=== PATIENT | female | born 1950 | race African-American/Black ===

== ENCOUNTER → 2016-07-22 | Outpatient (CLI) | payer MEDICARE, OTHER, MEDICAID ==
[~2016-07-22] MED LIST: BACTRIM DS 8001 TA1 PO; CLARITIN10 M1 PO; HYDROCODONE BIT1 T11 PO; LEXAPRO20 MG PO; NEURONTIN300 MG PO; OMEPRAZOLE20 MG PO; PREDNISONE10 MG PO; REMERON30 MG PO; ROBITUSSIN AC 110 ML PO; SIMVASTATIN10 MG PO; TYLENOL500 MG PO; VALIUM10 MG; VISTARIL25 MG PO; Vicodin 5/500 505 MG PO; ZOFRAN4 MG PO; [UNRECOGNIZED DRUG - REMARK]
== END | disposition home or self-care (01) ==
LOC: LAB 09:40
DX: E87.1 Hypo-osmolality and hyponatremia (principal); E55.9 Vitamin D deficiency, unspecified

== ENCOUNTER 2016-09-03 14:00 | Emergency (ER) | payer MEDICARE, OTHER, MEDICAID ==
[~2016-09-03] VITALS: Wt 43.5 kg
[2016-09-03 14:30] LABS: BASO # 0.1 10*3/uL (0.0-0.1); BASO % 0.7 % (0.0-1.0); EOS % 0.3 % (1.0-4.0); HEMATOCRIT 38.5 % (37.0-47.0); HEMOGLOBIN 13.4 g/dl (12.0-16.0); LYMPH % 21.6 % (27.0-41.0); MEAN CELL VOLUME 89.7 fl (81.0-99.0); MEAN CORPUSCULAR HGB 31.2 pg (27.0-31.0); MEAN CORPUSCULAR HGB CONC 34.8 g/dl (33.0-37.0); MEAN PLATELET VOLUME 9.4 fl (9.6-12.3); MONO # 0.6 10*3/uL (0.1-1.0); MONO % 6.1 % (3.0-9.0); NEUT # 6.6 10*3/uL (2.3-7.9); NEUT % 71.1 % (47.0-73.0); PLATELET COUNT AUTOMATED 390 10*3/uL (130-400); RED BLOOD COUNT 4.29 10*6/uL (4.10-5.10); RED CELL DISTRI WIDTH 13.2 % (0-14.5); WHITE BLOOD COUNT 9.3 10*3/uL (4.8-10.8)
[2016-09-03 14:48] LABS: ALBUMIN 3.9 gm/dl (3.1-4.5); BILIRUBIN, TOTAL 0.7 mg/dl (0.2-1.0); MAGNESIUM 1.4 mg/dL (1.5-2.1); POTASSIUM 4.6 mmol/L (3.5-5.1); TOTAL PROTEIN 8.2 gm/dL (6.4-8.2)
[2016-09-03 14:49] VITALS: BP 100/68
[2016-09-03 14:50] LABS: TROPONIN I 0.032 ng/ml (<0.045)
[2016-09-03 14:57] LABS: INTERNATIONAL NORM RATIO 1.2 (2.0-3.5); PROTHROMBIN TIME 12.4 SECONDS (9.0-12.4)
[2016-09-03] MEDS ORDERED: CLOPIDOGREL75 MG PO (15:10)
== END 2016-09-03 14:53 | disposition short-term general hospital (02) ==
LOC: ED 14:00
PROVIDERS: Nurse Practitioner Family
DX: I21.3 ST elevation (STEMI) myocardial infarction of unspecified site (principal); Z90.710 Acquired absence of both cervix and uterus; Z98.890 Other specified postprocedural states; Z79.899 Other long term (current) drug therapy

== ENCOUNTER → 2017-01-08 | Outpatient (CLI) | payer MEDICARE, MEDICAID ==
[~2017-01-08] MED LIST changes: +CLOPIDOGREL75 MG PO
== END | disposition home or self-care (01) ==
LOC: US 12:33
DX: I73.9 Peripheral vascular disease, unspecified (principal)

== ENCOUNTER → 2017-06-06 | Outpatient (CLI) | payer MEDICARE, MEDICAID | END | disposition home or self-care (01) | LOC: RAD 10:54 | DX: J44.9 Chronic obstructive pulmonary disease, unspecified (principal); J90 Pleural effusion, not elsewhere classified; J45.909 Unspecified asthma, uncomplicated; I11.0 Hypertensive heart disease with heart failure; I50.9 Heart failure, unspecified; I21.9 Acute myocardial infarction, unspecified; Z87.891 Personal history of nicotine dependence ==

== ENCOUNTER → 2017-06-13 | Outpatient (CLI) | payer MEDICARE, MEDICAID ==
[2017-06-13 10:18] LABS: BASO # 0.1 10*3/uL (0.0-0.1); BASO % 0.8 % (0.0-1.0); EOS % 0.4 % (1.0-4.0); HEMATOCRIT 33.4 % (37.0-47.0); HEMOGLOBIN 10.9 g/dl (12.0-16.0); LYMPH # 1.6 10*3/uL (1.3-4.4); LYMPH % 15.6 % (27.0-41.0); MEAN CELL VOLUME 88.1 fl (81.0-99.0); MEAN CORPUSCULAR HGB 28.8 pg (27.0-31.0); MEAN CORPUSCULAR HGB CONC 32.6 g/dl (33.0-37.0); MEAN PLATELET VOLUME 9.4 fl (9.6-12.3); MONO # 1.1 10*3/uL (0.1-1.0); NEUT # 7.1 10*3/uL (2.3-7.9); NEUT % 71.9 % (47.0-73.0); PLATELET COUNT AUTOMATED 457 10*3/uL (130-400); RED BLOOD COUNT 3.79 10*6/uL (4.10-5.10); RED CELL DISTRI WIDTH 14.3 % (0-14.5); WHITE BLOOD COUNT 9.9 10*3/uL (4.8-10.8)
[2017-06-13 10:46] LABS: ALBUMIN 2.7 gm/dl (3.1-4.5); CREATININE 1.47 mg/dL (0.55-1.02); POTASSIUM 3.4 mmol/L (3.5-5.1); TOTAL PROTEIN 7.6 gm/dL (6.4-8.2)
== END | disposition home or self-care (01) ==
LOC: LAB 09:54
PROVIDERS: Internal Medicine Hematology & Oncology
DX: C34.90 Malignant neoplasm of unspecified part of unspecified bronchus or lung (principal); J91.0 Malignant pleural effusion

== ENCOUNTER → 2017-06-21 | Day surgery (SDC) | payer MEDICARE, MEDICAID ==
[2017-06-20 09:48] LABS: BASO # 0.1 10*3/uL (0.0-0.1); BASO % 0.8 % (0.0-1.0); EOS % 0.3 % (1.0-4.0); HEMATOCRIT 34.7 % (37.0-47.0); HEMOGLOBIN 11.3 g/dl (12.0-16.0); LYMPH # 1.8 10*3/uL (1.3-4.4); LYMPH % 15.9 % (27.0-41.0); MEAN CELL VOLUME 87.6 fl (81.0-99.0); MEAN CORPUSCULAR HGB 28.5 pg (27.0-31.0); MEAN CORPUSCULAR HGB CONC 32.6 g/dl (33.0-37.0); MEAN PLATELET VOLUME 10.2 fl (9.6-12.3); MONO # 1.2 10*3/uL (0.1-1.0); MONO % 10.3 % (3.0-9.0); NEUT # 8.3 10*3/uL (2.3-7.9); NEUT % 72.2 % (47.0-73.0); PLATELET COUNT AUTOMATED 406 10*3/uL (130-400); RED BLOOD COUNT 3.96 10*6/uL (4.10-5.10); WHITE BLOOD COUNT 11.5 10*3/uL (4.8-10.8)
[2017-06-20 10:01] LABS: CREATININE 1.23 mg/dL (0.55-1.02); POTASSIUM 3.3 mmol/L (3.5-5.1)
[2017-06-20 10:08] LABS: ACT PARTIAL THROMBO TIME 25.4 SECONDS (20.8-31.5); INTERNATIONAL NORM RATIO 1.1 (2.0-3.5)
[2017-06-20 10:38] LABS: BILIRUBIN NEGATIVE (NEGATIVE); BLOOD NEGATIVE (NEGATIVE); CLARITY SL CLOUDY (CLEAR); COLOR YELLOW (YELLOW); GLUCOSE NEGATIVE (NEGATIVE); KETONE NEGATIVE (NEGATIVE); LEUKO ESTERASE NEGATIVE (NEGATIVE); NITRITE NEGATIVE (NEGATIVE); SPECIFIC GRAVITY 1.015 (1.005-1.030); UROBILINOGEN 0.2 E.U./dl (0.2-1.0)
[2017-06-20 10:50] LABS: BACTERIA 2+; EPITHELIAL CELLS 20-30; MUCOUS 1+
[~2017-06-21] VITALS: Ht 170.1 cm; Wt 40.4 kg
[~2017-06-21] MED LIST changes: +ALDACTONE25 MG PO; +AMIODARONE HCL200 MG PO; +BREO ELLIPTA 11 EACH INH; +CARVEDILOL3.125 MG PO; +FUROSEMIDE40 MG PO; +LISINOPRIL5 MG PO; +LORAZEPAM1 MG PO; +MORPHINE SULFAT15 M7 PO; +NITROGLYCERIN0.4 MG SL; +ONDANSETRON HYDR4 MG PO; +POTASSIUM CHLO20 ME4 PO; +PROVENTIL HFA6.7 GM INH; +Percocet 325 MG1 TAB PO; +ZOLPIDEM TART5 MG PO
--- NOTE | ~2017-06-21 | PROC NOTE ---
[place], [place] PROCEDURE NOTE NAME: VERONICA KHALIL [facility] #: [id number] UNIT #: [id number] ROOM: DOCTOR: TRAE DING MD BIRTHDATE: [birth year] DOS: 06/21/2017 PREOPERATIVE DIAGNOSIS: Left lung cancer. POSTOPERATIVE DIAGNOSIS: Left lung cancer. PROCEDURE: Right internal jugular MediPort placement. SURGEON: Trae Ding MD PAPER BAG MACHINE OPERATOR: NITESH. ANESTHESIA: MAC with local. INDICATIONS: This is a 66-year-old lady who needs a MediPort placed for chemotherapy for left lung cancer. It was decided to proceed with a right internal jugular possible right subclavian approach. The procedure and its complications were explained to the patient in detail preoperatively. Complications that were discussed included but were not limited to, bleeding, hemothorax, pneumothorax and infection. She agreed to proceed. DESCRIPTION OF PROCEDURE: After identifying the patient, the patient was brought to the operating suite and laid in the supine position. After IV sedation was administered, the parts were painted and draped in the usual sterile fashion. Timeout procedure was called. With the help of the ultrasound, the right-sided internal jugular vein was accessed and a guidewire was placed, which was confirmed to be in good position on fluoroscopy. Thereafter, a pocket was created on the anterior chest wall, 2 cm below the right clavicle after injecting local anesthesia (1% plain lidocaine). After a pocket was created, hemostasis was confirmed with the help of electrocautery. Thereafter, the catheter was mounted on an introducer and introduced via this incision into the neck where the internal jugular vein was accessed. Over the wire, a sheath and dilator was passed. The dilator was removed and the catheter was then introduced into the sheath and placed into the superior vena cava under direct vision and confirmed on fluoroscopy. Thereafter, the catheter was cut to size and the port was fixed to the end of the catheter. Heparin was injected and blood was withdrawn through this port and it was found to have good flow and good blood draw. At this point, the catheter was fixed to the underlying fascia with the help of 3-0 Prolene in an interrupted fashion. The subcutaneous tissue was approximated with the help of 3-0 Vicryl in a running fashion and the edges of the skin were approximated with the help of 4-0 Vicryl in a subcuticular running fashion. The access site in the neck also was approximated with the help of 4-0 Vicryl in a single stitch. Dressing was placed. The port was accessed again and was found to have good draw and good flow to heparin. The patient was then taken to the recovery room in stable fashion where a chest x-ray was ordered. There were no complications. Dr. Trae Ding, the attending surgeon, was present throughout the operating case. [place], [place] PROCEDURE NOTE NAME: KHALILVERONICA UNIT #: [id number] ROOM: DOCTOR: TRAE DING MD BIRTHDATE: [birth year] Trae Ding MD CM:PROCNOTE:PROCEDURE NOTE [id number] TRAE DING MD
[2017-06-21 06:58] VITALS: BP 131/69
[2017-06-21 08:18] VITALS: BP 104/60
[2017-06-21 08:31] VITALS: BP 102/61
[2017-06-21 08:47] VITALS: BP 107/60
== END | disposition home or self-care (01) ==
LOC: SDC 06-18 09:52
PROVIDERS: Surgery
DX: C34.92 Malignant neoplasm of unspecified part of left bronchus or lung (principal); I50.9 Heart failure, unspecified; Z79.899 Other long term (current) drug therapy; Z95.0 Presence of cardiac pacemaker; Z95.5 Presence of coronary angioplasty implant and graft; J44.9 Chronic obstructive pulmonary disease, unspecified; Z87.891 Personal history of nicotine dependence; Z90.710 Acquired absence of both cervix and uterus; Z98.890 Other specified postprocedural states; I73.9 Peripheral vascular disease, unspecified; I25.10 Atherosclerotic heart disease of native coronary artery without angina pectoris; E78.5 Hyperlipidemia, unspecified; K21.9 Gastro-esophageal reflux disease without esophagitis

== ENCOUNTER 2017-06-29 14:44 | Inpatient (IN) | payer MEDICARE, MEDICAID ==
[~2017-06-29] VITALS: Ht 167.6 cm; Wt 44.6 kg
[2017-06-29] VITALS (9 sets, daily range): BP systolic 122–146; BP diastolic 66–78
--- NOTE | ~2017-06-29 | PR ---
[place], [place] PROGRESS NOTE NAME: VERONICA KHALIL [facility] #: [id number] UNIT #: [id number] ROOM: 406 DOCTOR: LARS BLANCO,NIKOLE Lopez BIRTHDATE: [birth year] DOS: 07/03/2017 ADDENDUM See last dictation of my discharge summary from 07/03/2017 and this would be an addendum to the discharge summary. The patient with advanced lung cancer with metastasis to the bones, reevaluated by Dr. Long, had received one dose of chemotherapy and decided not to get any more doses. The patient is going to [facility] for now and Community palliative care is being consulted. Vital signs are stable. The patient is very weak and disabled from advanced metastatic lung cancer and the pain is being controlled with morphine and I am increasing the dose of morphine and she will be kept on Ativan to keep her comfortable. I will consult palliative care to discuss hospice care with the patient and family. Compensated systolic type congestive heart failure with 25% left ventricular ejection fraction. Coronary artery disease of the [place] vessels without chest pains. Moderate protein-calorie malnutrition and poor prognosis. NIKOLE SOUSA MD CM:PNTRANS 33 [phone] NIKOLE SOUSA MD 07/03/17 0910 interface
--- NOTE | ~2017-06-29 | PR ---
[place], [place] PROGRESS NOTE NAME: VERONICA KHALIL UNIT #: [id number] ROOM: 406 DOCTOR: NIKOLE SOUSA MD BIRTHDATE: [birth year] DOS: NO DICTATION. NIKOLE SOUSA MD CM:PNTRANS [phone] NIKOLE SOUSA MD 07/03/17 235 interface
--- NOTE | ~2017-06-29 | PR ---
[place], [place] PROGRESS NOTE [facility]: [facility] [id number] UNIT #: [id number] ROOM: 406 DOCTOR: NIKOLE SOUSA MD BIRTHDATE: [birth year] DOS: 07/01/2017 SUBJECTIVE: The patient is still having diarrhea, which is chronic for her, but worse than usual. No new complaints. Generalized weakness. OBJECTIVE: VITAL SIGNS: Blood pressure 116/60, heart rate 72 beats per minute, breathing 16 times per minute, temperature 98 degrees Fahrenheit. HEENT AND NECK: Exam within normal limits. CARDIOVASCULAR SYSTEM: Heart rate is regular in rate and rhythm. S1 and S2 normally audible. LUNGS: Clear to auscultation. ABDOMEN: Soft, nontender. No obvious organomegaly. Bowel sounds are present. EXTREMITIES: Without significant cyanosis or edema. IMPRESSION: 1. The patient still has diarrhea. Nausea and vomiting has improved. The patient is being hydrated with normal saline and I am checking her stool for Clostridium difficile, although she has no leukocytosis. 2. Moderate to severe protein-calorie malnutrition with metastatic lung cancer with metastasis to the bones. The patient was having severe back pains and was started on MS Contin and also in addition, she is getting Tylenol and she appears to be more comfortable. 3. Coronary artery disease of the [place] vessels without chest pains. 4. Systolic type congestive heart failure with 25% left ventricular ejection fraction, compensated. 5. Left lower lung pleural effusion which is loculated followed by Dr. Long. 6. The patient is status post chemotherapy for her malignancy 1 week back being followed by Dr. Sofia. NIKOLE SOUSA MD CM:PNTRANS [id number] NIKOLE SOUSA MD 07/01/172203 interface
--- NOTE | ~2017-06-29 | PR ---
[place], [place] PROGRESS NOTE NAME: VERONICA KHALIL [facility] #: [id number] UNIT #: [id number] ROOM: 406 DOCTOR: RUBY RANGEL MD BIRTHDATE: [birth year] DOS: 07/03/2017 SUBJECTIVE: The patient is doing better. She had a PleurX catheter in place. Did not drain much fluid and it will be taken out because that is causing pain. REVIEW OF SYSTEMS HEENT: No trouble swallowing. No double vision. No loss of vision. No pain. ENT AND RESPIRATORY: No wheeze. No change in voice. No cough. No shortness of breath. No coughing up blood. No epistaxis. CARDIOLOGIC: No chest pain. No dizziness. No irregular heartbeat. No leg edema. No palpitations. No shortness of breath. HEMATOLOGIC AND LYMPH: No past transfusion. No fatigue. No loss of appetite. No easy bruising. GASTROENEROLOGIC: No change in bowel habits. No vomiting blood. No abdominal cramping. No nausea. No vomiting. No diarrhea. No constipation. No blood in stool. FEMALE REPRODUCTIVE: No dyspareunia. No pelvic pain. MUSCULOSKELETAL: No back pain. No muscle pain or weakness. No tingling/numbness. UROLOGIC: No pain with urination. No difficulty urinating. No frequent urination. NEUROLOGIC: No burning pain in feet. No trouble with coordination. No loss of consciousness. No headache. No tingling/numbness. No memory loss. PHYSICAL EXAMINATION: GENERAL: She is a pleasant woman in no apparent distress. VITAL SIGNS: Stable. She is afebrile. HEENT: Normocephalic, atraumatic NECK AND THYROID: Supple. No JVD, thyromegaly, or lymphadenopathy. HEART: Normal S1, S2. Regular rate and rhythm. LUNGS: Clear to auscultation and percussion. ABDOMEN: Soft. Nontender, nondistended. Bowel sounds present. EXTREMITIES: Normal ROM. No clubbing. No edema. LABORATORY DATA: White count of 3.8, hemoglobin 7.7, hematocrit 23.9, platelet count 140,000. ASSESSMENT: 1. Metastatic lung cancer status post first cycle of chemotherapy. 2. Nausea, which is improved. 3. Anemia of neoplastic disorder. PLAN: We will be getting a CBC today. PleurX catheter will be removed. She will be going to a alf for now. We will reevaluate her in a few weeks depending on further intervention. Discussed with the patient. Transfusion will get now. [place], [place] PROGRESS NOTE NAME: VERONICA KHALIL UNIT #: [id number] ROOM: [facility] DOCTOR: RUBY RANGEL MD BIRTHDATE: [birth year] RUBY RANGEL MD CM:PNTRANS [id number] RUBY RANGEL MD 07/03/17 0843 interface
--- NOTE | ~2017-06-29 | CON ---
[place], [place] REPORT OF CONSULTATION NAME: VERONICA KHALIL [facility] #: [id number] UNIT #: [id number] ROOM: 406 DOCTOR: ROMAN JHAVERI MD BIRTHDATE: [birth year] DOS: 06/30/2017 CONSULTATION REQUESTED BY: Dr. Bess. REASON FOR CONSULTATION: Assessment of pleural fluid. HISTORY OF PRESENT ILLNESS: This is a 66-year-old -[place] female who was very well known to me from the previous assessment in the office and other hospital. The patient has been admitted in [facility] in 03/2017 or 04/2017. She has been noted with progressive increased pleural fluid that was noted on the left side. Thoracentesis was done with large volume pleural fluid was removed, diagnosis of adenocarcinoma was established. Later on, the patient upon discharge. In April, she underwent PleurX catheter insertion, which was done by the surgeon. The pleural catheter had been used for intermittent drainage of the pleural fluid at left pleural space. The patient stated that has not been much fluid being removed at this time. She was complaining of pain in the left side of the chest. The pain has been described to be intermittently. Denies symptoms of hemoptysis. Denies symptoms of coughing or any sputum expectoration. REVIEW OF SYSTEMS: CONSTITUTIONAL: Fatigue and tiredness noted, decreased appetite, gradual weight loss. EYES: Denies any burning, redness, or tenderness. EARS, NOSE, AND THROAT: Denies sore throat, hoarseness, otalgia, postnasal drainage. GASTROINTESTINAL: No dysphagia, nausea, vomiting, diarrhea, abdominal pain, hematemesis, melena, or hematochezia. SKIN: Denies any lesions or rashes. GENITOURINARY SYMPTOMS: No dysuria, suprapubic pain, hematuria, urinary hesitancy for this patient or incontinence. CENTRAL NERVOUS SYSTEM: The patient noted overall general weakness and fatigue. No dizziness, headache, diplopia, syncopal episode, tingling sensation of the extremities. MUSCULOSKELETAL: Denies acute joint pain. Remaining systems were reviewed. They were noted all negative. PAST MEDICAL HISTORY: Noted with 1. Metastatic cancer. The patient had a carcinoma with malignant pleural fluid was noted, currently been assessed and treated with chemotherapy by Dr. Sofia. 2. History of chronic systolic congestive heart failure with ejection fraction about 25%. 3. Past history of alcoholism. 4. Encephalopathy. 5. Chronic obstructive pulmonary disease. 6. Coronary artery disease. 7. History of cancer of the cervix. 8. Peripheral vascular disease. [place], [place] REPORT OF CONSULTATION NAME: VERONICA KHALIL UNIT #: [id number] ROOM: 406 DOCTOR: VIRAJ FENG MD,ROMAN BIRTHDATE: [birth year] PAST SURGICAL HISTORY: 1. Colostomy for this patient followed by reversal in 2005. 2. Femoral popliteal bypass grafting 04/[address] Perdomo. 3. Total abdominal hysterectomy. 4. Pleural catheter insertion in the left pleural space, malignant for which long-term drainage. 5. Left-sided thoracentesis. 6. PowerPort placement in the chest on 06/21/2017. SOCIAL HISTORY: The patient stated , lives at home. Denies any history of alcohol use at the present time, used to drink alcohol. Tobacco use noted previously. Half a pack of cigarettes per day for the patient that was discontinued in 04/2017. FAMILY HISTORY: Hypertension and other coronary artery disease. MEDICATIONS: The patient currently administered noted use of Aldactone, potassium chloride, lisinopril, Plavix, amiodarone, Reglan, omeprazole, Lasix, simvastatin, gabapentin, Coreg, nitroglycerin p.r.n. and other p.r.n. medications administration including morphine sulphate. ALLERGIES: The drug allergy history noted as no known drug allergies. PHYSICAL EXAMINATION: GENERAL: A 66-year-old female patient, -[place], currently lying in the bed, the patient appeared to be chronically sick. Height of the patient recorded on current admission by the nursing staff with height of 5 feet 6 inches, weight of 86 pounds, BMI only 13.8. VITAL SIGNS: Shows normal temperature, respiratory 18-19, heart rate of 69-89. The blood pressure 140/69-144/71, pulse oxygen saturation on 2 liters nasal cannula 95% saturation. HEENT: Head was atraumatic. Eyes nonicterus. NECK: Supple. CARDIOVASCULAR: S1, S2 is audible. LUNGS: The patient was noted without any crackles, rhonchi or wheezing on the right side. Diminished breath sounds noted in the left mid and lower portion of the chest. There were no crackles or wheezing on that side. ABDOMEN: Soft, flat, nontender. EXTREMITIES: Loss of muscle mass without any edema, clubbing, cyanosis. CENTRAL NERVOUS SYSTEM: Cranial nerves 2-12 intact. MUSCULOSKELETAL: Without any acute deformities. LABORATORY DATA: The lactic acid on admission yesterday was 1.2. CBC yesterday on admission, WBC count 12.4, hemoglobin 10.5, hematocrit 32.1, platelet count of 228,000. CMP of the patient 06/29/2017, BUN 27, creatinine 1.26, glucose 100, sodium 127, chloride of 90. AST of 69. The CBC, hemoglobin 8.3, hematocrit 25.7, platelet count were normal. WBC count normal. BMP this morning, normal BUN and creatinine. The chest x-ray shows loculated pleural fluid with volume loss for this patient was noted. AICD noted in place and the [place], [place] REPORT OF CONSULTATION NAME: VERONICA KHALIL UNIT #: [id number] ROOM: [facility] DOCTOR: ROMAN JHAVERI MD BIRTHDATE: [birth year] MediPort also noted in place for the patient as well. The right lung shows changes of COPD and hyperinflation. IMPRESSION: 1. The patient has been currently complaining of pain in the side of the chest most likely related to the current malignant process involving the pleura as adenocarcinoma of the lung. 2. Progressive weight loss, cachexia, because of the advanced malignancy as well. 3. The patient with COPD history without any findings of acute exacerbation. 4. History of severe chronic systolic congestive heart failure as well. PLAN OF MANAGEMENT: For more adequate assessment patient at this time, CT scan chest will be needed to assess the current pleural fluid. Treat the patient for the pain management adequately. Continuation of other supportive therapy, plan and management. Addition nutrition support for the patient given for the patient as tolerated. Other supportive plan of management and care plan. Supportive treatment and other therapies. ROMAN CALI MD CM:CONSTR:REPORT OF CONSULTATION 1157 07/09/17 0849 interface
--- NOTE | ~2017-06-29 | CON ---
[place], [place] REPORT OF CONSULTATION NAME: VERONICA KHALIL [facility] #: [id number] UNIT #: [id number] ROOM: 406 DOCTOR: RUBY RANGEL MD BIRTHDATE: [birth year] DOS: 07/02/2017 HISTORY OF PRESENT ILLNESS: The patient is a pleasant 66-year-old woman with a history of metastatic lung cancer with quarter chemotherapy last week, presented with nausea, vomiting and some diarrhea. She started after chemotherapy and subsequently admitted for further evaluation and management. PAST MEDICAL HISTORY: Significant for history of recently diagnosed with metastatic lung cancer, history of coronary artery disease and myocardial infarction, history of systolic congestive heart failure at 25% ejection fraction, history of hepatic encephalopathy, history of alcoholism, and history of pancreatitis. PAST SURGICAL HISTORY: Status post reversal of colostomy ____, history of fem-pop bypass, and history of cervical cancer with hysterectomy. MEDICATIONS: Spironolactone, potassium, omeprazole, lisinopril, furosemide, Plavix, ____ simvastatin, Coreg, ondansetron, Ambien, morphine, and lorazepam. ALLERGIES: No allergies. REVIEW OF SYSTEMS: CONSTITUTIONAL: No chills. No fatigue. No fever. No loss of appetite. No night sweats. No weakness. No weight loss. HEENT: No trouble swallowing. No loss of smell. No loss of hearing. No double vision. No pain. No discharge. ENT AND RESPIRATORY: No wheeze. No sore throat. No change in voice. No hearing loss. No nose bleed. No cough. No trouble breathing through nose. No shortness of breath. No coughing up blood. No epistaxis. CARDIOVASCULAR: No chest pain. No dizziness. No irregular heartbeat. No leg edema. No pain in legs while walking. No palpitations. No shortness of breath. DERMATOLOGIC: No acne. No hives. No laceration. No mole. No rash. ENDOCRINE: No cold intolerance. No diabetes. No fatigue. No hot flashes. No polydipsia. No polyuria. No urinating frequently. No weight loss. HEMATOLOGIC AND LYMPH: No fatigue. No easy bruising. GASTROENTEROLOGIC: No change in bowel habits. No indigestion. No frequent bloating. No vomiting blood. No abdominal cramping. No nausea. No heartburn. No vomiting. No abdominal pain. No dysphagia. No diarrhea. No constipation. No blood in stool. FEMALE REPRODUCTIVE: No vaginal itching. No difficulty urinating. No heavy periods. No dyspareunia. No sexually active. No dysmenorrhea. No pelvic pain. No breast pain. No nipple discharge. No abnormal vaginal discharge. No hot flashes. MUSCULOSKELETAL: No back pain. No muscle pain or weakness. No neck pain. No tingling/numbness. No swelling/bruising. No osteoporosis treatment. OPHTHALMOLOGIC: No double vision. No diminished vision. No loss of vision. UROLOGIC: No dysuria. No frequent nighttime urination. No irregular periods. No pain with urination. No difficulty urinating. No blood in urine. No frequent urination. No urinary incontinence. [place], [place] REPORT OF CONSULTATION NAME: VERONICA KHALIL UNIT #: [id number] ROOM: [facility] DOCTOR: RUBY RANGEL MD BIRTHDATE: [birth year] NEUROLOGIC: No loss of sensation in specific body area. No vertigo. No burning pain in feet. No trouble with balance. No trouble with coordination. No loss of consciousness. No loss of feeling/power. No confusion. No headache. No tingling/numbness. PSYCHOLOGIC: No tinnitus. No headaches. No shortness of breath. No weight decrease. No nausea. No vomiting. No abdominal discomfort. No constipation. No diarrhea. No depression. No anxiety. PHYSICAL EXAMINATION: GENERAL: Pleasant woman in no apparent distress, feeling better, oriented x 3. VITAL SIGNS: Stable. She is afebrile. HEENT: Oral mucosa appears intact. The external ears are normal in appearance. Nares are patent without lesions, exudates, erythema, or inflammation. Tongue is symmetrical. Uvula is midline. NECK AND THYROID: Neck supple without palpable masses. Trachea is midline. No thyromegaly. No carotid bruit or JVD. BREASTS: Normal. Nipples unremarkable. No drainage. No lumps felt on either side. HEART: Normal S1, S2, without significant murmur, rub, or gallop. LUNGS: Decreased breath sounds bilaterally. ABDOMEN: No costovertebral angle tenderness. Soft. No organomegaly or masses. Nontender. No hernias present. Liver and spleen are not palpable. LYMPHATIC: No adenopathy noted in the cervical, supraclavicular, axillary, or inguinal regions. NEUROLOGIC: Nonfocal. Oriented to person, place, and time. MENTAL STATUS: Appropriate for mood and affect. PERIPHERAL PULSES: No varicosities. Femoral and pedal pulses are palpable. EXTREMITIES: Without cyanosis, clubbing, or edema. No gross anomalies. LABORATORY DATA: White count of 3.8, hemoglobin 7.7, hematocrit 23.9, and platelet count 240,000. Chemistries: Glucose of 77, BUN 9, EGFR more than 60, sodium 133, potassium 3.9, chloride 101, bicarbonate 23, and calcium 7.8. ASSESSMENT: 1. Metastatic lung cancer. 2. Anemia of neoplastic disorder. 3. Possible bronchitis. 4. Nausea. The patient was started on antibiotics. She was also on broad spectrum antibiotics. We will keep a close watch at this time. Overall, she is stable. Continue supportive care for now. Overall, prognosis is poor. I had detailed discussion with the patient about it, seemed to understand it. Ample time was given to the patient to ask me questions. [place], [place] REPORT OF CONSULTATION NAME: VERONICA KHALIL UNIT #: [id number] ROOM: 406 DOCTOR: RUBY RANGEL MD BIRTHDATE: [birth year] RUBY RANGEL MD CM:CONSTR:REPORT OF CONSULTATION 0 07/02/17 1749 interface
--- NOTE | ~2017-06-29 | PR ---
[place], [place] PROGRESS NOTE NAME: VEORNICA KHALIL UNIT #: [id number] ROOM: 406 DOCTOR: ROMAN JHAVERI MD BIRTHDATE: [birth year] DOS: 07/03/2017 SUBJECTIVE: She has been noted stable at this time, still complaining of pain in the chest. The patient's pain intensity and frequency has been decreased. Current pain medication combination. Denies symptoms of hemoptysis. She was seen by Dr. Patel who was consulted yesterday removal of the pleural catheter. She will be undergoing the surgical removal of the PleurX drain catheter this morning. OBJECTIVE: VITAL SIGNS: Normal temperature, respiratory rate 20, heart rate 93, blood pressure 154/89, and pulse ox saturation on room air 97% saturation. HEENT: No new change. NECK: Supple. CARDIOVASCULAR: S1, S2 is audible. LUNGS: The patient was noted without any wheezing or crackles. Decreased breath sounds on the left lower lung. ABDOMEN: Soft and nontender. EXTREMITIES: Without any acute edema. LABORATORY DATA: CBC today, WBC count 3.8, hemoglobin 7.8, hematocrit 24.8, and platelet count was normal. Culture of the sputum for the patient was noted with moderate growth of yeast. Preliminary final culture results were pending. IMPRESSION: 1. Malignant pleural fluid on the left side with chest pain secondary to malignancy, adenocarcinoma with other mass lesion noted in the left lung. 2. The patient with leukopenia and anemia secondary to malignancy, possible chemotherapy effects. PLAN OF MANAGEMENT: No changes in the plan of therapy at this time. Continue the patient's current plan of management. Proceed with the removal of the PleurX catheter drain. After that the patient could be considered for home discharge if necessary with pain medication. Consider hospice care and assessment as well since the patient decided not to have further chemotherapy given. [place], [place] PROGRESS NOTE NAME: VERONICA KHALIL UNIT #: [id number] ROOM: 406 DOCTOR: ROMAN JHAVERI MD BIRTHDATE: [birth year] ROMAN CALI MD CM:PNTRANS [id number] ROMAN FENG MD 07/09/17 0850 interface
--- NOTE | ~2017-06-29 | PR ---
[place], [place] PROGRESS NOTE NAME: VERONICA KHALIL UNIT #: [id number] ROOM: 406 DOCTOR: NIKOLE SOUSA MD BIRTHDATE: [birth year] DOS: 06/30/2017 SUBJECTIVE: The patient is complaining of significant back pain. It is not controlled with morphine and she is requesting Tylenol, which does work for her in addition to morphine. OBJECTIVE: VITAL SIGNS: Blood pressure 114/61, heart rate 79 beats per minute, breathing 16 times per minute, temperature of 98 degrees Fahrenheit. GENERAL APPEARANCE: The patient is alert and oriented x 3, in no visible distress, except for generalized weakness and cachexia. HEENT AND NECK: Exam within normal limits. CARDIOVASCULAR SYSTEM: Heart rate is regular in rate and rhythm. S1 and S2 normally audible. LUNGS: Clear to auscultation. ABDOMEN: Soft, nontender. No obvious organomegaly. Bowel sounds are present. EXTREMITIES: Without significant cyanosis or edema. IMPRESSION AND PLAN: 1. The patient with nausea, vomiting, diarrhea and dehydration, improved with hydration with normal saline. We are taking bedsore precautions and fall precautions. The patient to work with physical therapy. 2. Moderate to severe protein-calorie malnutrition with metastatic lung cancer with metastasis to the bone and significant pain. The patient was started on MS Contin and I will add on Tylenol 3 times a day and continue to follow her. I will continue to monitor her pain complaints. 3. Coronary artery disease of the [place] vessels and history of myocardial infarction, presently without chest pain. 4. Systolic type congestive heart failure with 25% left ventricular ejection fraction, compensated, chronic. 5. Left lower lung pleural effusion and adjacent atelectasis. The patient to be followed by Dr. Long. 6. Adult failure to thrive, generalized weakness, protein calorie malnutrition and advanced failure to thrive. The patient has a suboptimal prognosis. [place], [place] PROGRESS NOTE NAME: VERONICA KHALIL UNIT #: [id number] ROOM: 406 DOCTOR: NIKOLE SOUSA MD BIRTHDATE: [birth year] NIKOLE SOUSA MD CM:PNTRANS [id number] NIKOLE SOUSA MD 06/30/17 9468 interface
--- NOTE | ~2017-06-29 | WRIGHTHP ---
[place], [place] PATIENT HISTORY AND PHYSICAL EXAM NAME: VERONICA KHALIL [facility] #: [id number] UNIT #: [id number] ROOM: 406 DOCTOR: NIKOLE SOUSA MD BIRTHDATE: [birth year] DOS: 06/29/2017 HISTORY OF PRESENT ILLNESS: 1. The patient is a 66-year-old female with history of metastatic lung cancer with metastasis to the bone. The patient started on chemotherapy on Sunday, which was 5 days ago. 2. Coronary artery disease and myocardial infarction. 3. Systolic type congestive heart failure at 25%, left ventricular ejection fraction. 4. History of alcoholism. 5. Hepatic encephalopathy. 6. History of pancreatitis. 7. The patient with reversal of colostomy at [facility] on 06/13/2005. 8. History of fem-pop bypass. 9. The patient has history of cervical cancer with hysterectomy. The patient presented to [facility] Emergency Department with persistent nausea, vomiting and some diarrhea, which started after her chemotherapy on Sunday. The patient is feeling very weak and tired. After initial treatment in Emergency Department, she was admitted to [facility]. The patient feels somewhat uncomfortable, but no chest pains, although she is chronically short of breath and uses oxygen. No fainting episode. No other GI or urinary symptoms. REVIEW OF SYSTEMS: LUNGS: Chronic shortness of breath and oxygen dependence. GASTROINTESTINAL: Recent nausea, vomiting and diarrhea. CARDIOVASCULAR: No chest pains or palpitations. ALLERGIES: No known drug allergies. HOME MEDICATIONS: Spironolactone, potassium, omeprazole, lisinopril, furosemide, Plavix, amiodarone, simvastatin, Coreg, ondansetron, Ambien, morphine, lorazepam. PHYSICAL EXAMINATION: GENERAL: Very weak and looks somewhat uncomfortable, but in no distress. She is otherwise oriented x 3. VITAL SIGNS: Blood pressure 144/71, heart rate 84 beats per minute, breathing 18 times per minute, temperature 98.3 degrees Fahrenheit. HEENT AND NECK: Extraocular movements are intact. Sclerae are anicteric. Oral mucosa is moist and clean. No obvious facial weakness. Neck is supple without any lymphadenopathy. No thyromegaly. No JVD. No carotid arterial bruits. CHEST: The patient is very weak and cachectic with MediPort placed in right upper chest. Generalized muscle wasting and on lung auscultation she has somewhat decreased breath sounds and slight expiratory wheezing. CARDIOVASCULAR SYSTEM: Heart rate is regular in rate and rhythm. S1 and S2 normally audible. No significant murmur or any other abnormal cardiac sounds. ABDOMEN: Soft, nontender. No obvious organomegaly. Bowel sounds are present. [place], [place] PATIENT HISTORY AND PHYSICAL EXAM [facility]: [id number] UNIT #: [id number] ROOM: [facility] DOCTOR: NIKOLE SOUSA MD BIRTHDATE: [birth year] No obvious herniation. EXTREMITIES: Without significant cyanosis or edema. Warm to touch. CENTRAL NERVOUS SYSTEM: Alert and oriented x 3. Cranial nerves II-XII are intact. Speech is normal. The patient is able to move all extremities. Normal muscle strength. Deep tendon reflexes are equal on both sides. Plantars were downgoing. LABORATORY DATA: Chest x-ray with moderate left pleural effusion and atelectasis. BUN and creatinine 27 and 1.2, sodium 127, albumin 2.7. White cell count of 12,400, hemoglobin 10.5. Normal platelets. IMPRESSION AND PLAN: 1. The patient has nausea, vomiting, diarrhea, and dehydration. After receiving chemotherapy on Sunday, the patient to be started on hydration with normal saline and her serum electrolytes will be monitored. The patient will also be kept on physical therapy and will take bedsore and fall precautions. 2. [id number]-[id number] protein calorie malnutrition related to her multiple medical problems and metastatic lung cancer. 3. Coronary artery disease of the [place] vessels and [place], history presently without chest pain. 4. Chronic systolic type congestive heart failure at 25% left ventricular ejection fraction, presently compensated. 5. The patient with significant left lower lung pleural effusion and adjacent atelectasis. I will consult Dr. Long to evaluate and treat. 6. Adult failure to thrive, generalized weakness, and protein calorie malnutrition. The patient has suboptimal prognosis. NIKOLE SOUSA MD CM:HISPHYS:PATIENT HISTORY AND PHYSICAL EXAMINATION 52 [phone] NIKOLE SOUSA MD 06/29/172128 interface
--- NOTE | ~2017-06-29 | PR ---
[place], [place] PROGRESS NOTE NAME: VERONICA KHALIL [facility] #: [id number] UNIT #: [id number] ROOM: 406 DOCTOR: VIRAJ FENG MD,ROMAN BIRTHDATE: [birth year] DOS: 07/01/2017 PULMONARY FOLLOWUP SUBJECTIVE: The patient was noted comfortable at this time. Chest pain has been noted moderately controlled by current pain management. Denies any symptoms of hemoptysis. Complains of cough, which has been noted with intermittent sputum expectoration. Denies symptoms of abdominal pain. Denies symptoms of nausea, vomiting, diarrhea or any abdominal pain. Denies symptoms of hematuria. General weakness and fatigue was still noted. Denies symptoms of dizziness or headache. OBJECTIVE: VITAL SIGNS: For the patient, which were recorded in the last 24 hours reviewed, shows a normal temperature, respiratory rate 16, heart rate of 72, blood pressure 116/60. HEENT: Shows head was atraumatic. Eyes, nonicterus. NECK: Supple. CARDIOVASCULAR: S1, S2 was audible. LUNGS: Noted without any wheezing or crackles in the right side. Diminished breath sounds noted in the left chest. ABDOMEN: Flat, soft, nontender. EXTREMITIES: Loss of muscle mass. VISIBLE SKIN: No lesions or rashes. MUSCULOSKELETAL: Without any acute deformities. CENTRAL NERVOUS SYSTEM: Without any gross focal neurologic deficit. LABORATORY DATA: CBC today, hemoglobin 7.8, hematocrit 20.9, WBC count normal, platelet count were normal. The BMP that was done this morning shows BUN 15, creatinine was normal. Sodium of 133. CT scan of the chest that I ordered yesterday was personally reviewed. CT scan images shows numerous pulmonary nodule noted with miliary pattern and metastatic malignancy would be considered very likely. Evidence of a loculated pleural fluid noted. The chest tube was noted in the left lower portion of the thorax, at the site of one loculated pleural fluid. The esophagus was also noted with some material on liquid. IMPRESSION: 1. The patient with coughing, which has been noted, advanced lung malignancy with further worsening noted with metastatic cancer, biliary nodules numerous in the lungs bilaterally. Loculated pleural fluid, secondary to malignancy. 2. Suspicion of acute bronchitis. 3. The patient with overall poor performance physically as well secondary to malignancy. PLAN OF MANAGEMENT: The patient will be started on the oral antibiotic. Sputum culture will be added. She decided not to undergo further chemotherapy. The patient should be assessed possibly for hospice care as well. Other supportive therapy and the management plan to be continued. Usual care. Overall prognosis noted to be extremely poor. [place], [place] PROGRESS NOTE NAME: VERONICA KHALIL UNIT #: [id number] ROOM: [facility] DOCTOR: ROMAN JHAVERI MD BIRTHDATE: [birth year] ROMAN CALI MD CM:PNTRANS [id number] ROMAN FENG MD 07/02/17 0425 interface
--- NOTE | ~2017-06-29 | DS ---
[place], [place] DISCHARGE SUMMARY NAME: VERONICA KHALIL [facility] #: [id number] UNIT #: [id number] ROOM: 406 DOCTOR: NIKOLE SOUSA MD BIRTHDATE: [birth year] DOS: 07/03/2017 ANTICIPATED DISCHARGE: Whenever patient can be sent over to [facility] as arranged by case management. DISCHARGE DIAGNOSES: 1. Advanced lung cancer with metastasis, evaluated by Dr. Long. 2. Moderate to severe protein-calorie malnutrition and poor prognosis. 3. Coronary artery disease of the [place] vessels. 4. Systolic type congestive heart failure with 25% left ventricular ejection fraction, compensated. 5. Loculated left lower lung pleural effusion, with chest tube placement, which is going to be removed by Dr. Patel when arranged. 6. The patient is status post chemotherapy [address] Sofia. 7. Coronary artery disease of the [place] vessels and history of myocardial infarction. 8. History of alcoholism. 9. Hepatic encephalopathy. 10. Previous history of pancreatitis. 11. Previous history of reversal of colostomy at [facility] in 2005. 12. Femora-popliteal bypass. 13. History of cervical cancer and hysterectomy. HOSPITAL COURSE: The patient presented to the Emergency Department with persistent nausea, vomiting and some diarrhea. Stool for C. diff have been negative and patient was treated with hydration with normal saline. The patient's diarrhea started after she received chemotherapy a few days earlier. The patient was feeling very weak and tired and she was admitted to [facility] and treated with hydration with normal saline. The patient is feeling somewhat better and she has decided to go to fpc facility at [facility] when arrangements are complete. Moderate to severe protein-calorie malnutrition with poor prognosis, related to her metastatic lung cancer. The patient with metastatic lung carcinoma with metastasis to the bones, status post chemotherapy by Dr. Sofia. The patient is not planning to get any more chemotherapy and is reconsidering her code status, as the patient's prognosis remains very poor. Left lower lung pleural effusion and loculated fluid for which the patient had chest tube in place. Dr. Long reevaluated the patient and recommended chest tube to be removed by Dr. Patel, who has been consulted. Adult failure to thrive, generalized weakness and protein-calorie malnutrition. The patient worked with Dietary and was encouraged to eat. Multiple medical issues including hepatic encephalopathy, previous history of alcoholism, history of fem-pop bypass, cervical cancer and hysterectomy and [place], [place] DISCHARGE SUMMARY NAME: VERONICA KHALIL [facility] #: [id number] UNIT #: [id number] ROOM: [facility] DOCTOR: LARS BLANCO,NIKOLE Lopez BIRTHDATE: [birth year] advanced disability and adult failure to thrive. Coronary artery disease of [place] vessels and [place], without any chest pains. LABORATORY DATA: White cell count of 2800, hemoglobin 7.7 and stable, platelets 140,000. Normal serum electrolytes. Stool for C. diff negative, checked because of diarrhea and started after chemotherapy. CT of the chest showed left-sided chest tube located in the anterior left costophrenic angle, partly loculated small left pleural effusion and COPD with diffuse nodular densities. DISCHARGE MANAGEMENT: Tylenol 1000 mg t.i.d., spironolactone 25 mg a day, potassium chloride 20 mEq daily, lisinopril 5 mg a day, Plavix 75 mg a day, amiodarone 200 mg daily, metoclopramide 10 mg before meals, omeprazole 40 mg a day, furosemide 40 mg b.i.d., simvastatin 10 mg a day, gabapentin 300 mg b.i.d., Coreg 3.125 mg b.i.d., sublingual nitroglycerin 0.4 mg every 5 minutes x 3 p.r.n. for chest pains, regular diet, zolpidem 5 mg at bedtime p.r.n., lorazepam 1 mg daily p.r.n. for anxiety and sleep, MS Contin 15 mg b.i.d. NIKOLE SOUSA MD CM:DISCHARG [id number] NIKOLE SOUSA MD 07/02/17 1821 interface
--- NOTE | ~2017-06-29 | PR ---
[place], [place] PROGRESS NOTE NAME: VERONICA KHALIL [facility] #: [id number] UNIT #: [id number] ROOM: 406 DOCTOR: VIRAJ FENG MD,ROMAN BIRTHDATE: [birth year] DOS: 07/02/2017 SUBJECTIVE: The patient was still complaining of pain in the left chest. Denies any symptoms of abdominal pain. Denies symptoms of hemoptysis. Denies symptoms of nausea or vomiting. OBJECTIVE: VITAL SIGNS: Normal temperature, respiratory rate 18, heart rate of 84, blood pressure 136/70. Pulse oxygen saturation on 2 liters is 94% saturation. HEENT: Examination shows no acute change. NECK: Supple. CARDIOVASCULAR: S1, S2 audible. LUNGS: Noted without any wheeze or crackles at the present time. The breaths are noted decreased in the left lower chest. ABDOMEN: Soft, nontender. EXTREMITIES: Without any acute edema. IMPRESSION: 1. Persistent left-sided chest pain secondary to malignancy with loculated pleural fluid secondary to adenocarcinoma, which has been noted progressive. 2. Leukopenia and anemia secondary to chemotherapy. PLAN OF MANAGEMENT: The patient would like to have the PleurX catheter removed. The consultation has been ordered for the patient with Dr. Patel. I spoke with him about that. PleurX catheter will be removed since it is not serving much at all any way. Continue optimizing pain management. Other therapy to be continued. ROMAN CALI MD CM:PNTRANS [phone] ROMAN FENG MD 07/02/17 2246 interface
[~2017-06-29 14:44] MED LIST changes: -ALDACTONE25 MG PO; -AMIODARONE HCL200 MG PO; -BREO ELLIPTA 11 EACH INH; -CARVEDILOL3.125 MG PO; -FUROSEMIDE40 MG PO; -LISINOPRIL5 MG PO; -LORAZEPAM1 MG PO; -MORPHINE SULFAT15 M7 PO; -NITROGLYCERIN0.4 MG SL; -ONDANSETRON HYDR4 MG PO; -POTASSIUM CHLO20 ME4 PO; -PROVENTIL HFA6.7 GM INH; -Percocet 325 MG1 TAB PO; -ZOLPIDEM TART5 MG PO
[2017-06-29 15:17] LABS: HEMATOCRIT 32.1 % (37.0-47.0); HEMOGLOBIN 10.5 g/dl (12.0-16.0); MEAN CELL VOLUME 86.1 fl (81.0-99.0); MEAN CORPUSCULAR HGB 28.2 pg (27.0-31.0); MEAN CORPUSCULAR HGB CONC 32.7 g/dl (33.0-37.0); PLATELET COUNT AUTOMATED 228 10*3/uL (130-400); RED BLOOD COUNT 3.73 10*6/uL (4.10-5.10); WHITE BLOOD COUNT 12.4 10*3/uL (4.8-10.8)
[2017-06-29 15:32] LABS: ALBUMIN 2.7 gm/dl (3.1-4.5); CREATININE 1.26 mg/dL (0.55-1.02); POTASSIUM 4.2 mmol/L (3.5-5.1)
[2017-06-29 15:39] LABS: TOTAL CELLS COUNTED 100 #CELLS
[2017-06-29 15:40] LABS: PLATELET SUFFICIENCY NORMAL (NORMAL); ROULEAUX SLIGHT
[2017-06-29] MEDS ORDERED: ALDACTONE25 MG PO (15:57)
[2017-06-29] MEDS ORDERED: AMIODARONE HCL200 MG PO (15:57)
[2017-06-29] MEDS ORDERED: ZOLPIDEM TART5 MG PO (15:57)
[2017-06-29] MEDS ORDERED: FUROSEMIDE40 MG PO (15:58)
[2017-06-29] MEDS ORDERED: ONDANSETRON HYDR4 MG PO (15:59)
[2017-06-29] MEDS ORDERED: MORPHINE SULFAT15 M7 PO (15:59)
[2017-06-29] MEDS ORDERED: CARVEDILOL3.125 MG PO (16:00)
[2017-06-29] MEDS ORDERED: Percocet 325 MG1 TAB PO (16:00)
[2017-06-29] MEDS ORDERED: POTASSIUM CHLO20 ME4 PO (16:00)
[2017-06-29] MEDS ORDERED: LORAZEPAM1 MG PO (16:01)
[2017-06-29] MEDS ORDERED: NITROGLYCERIN0.4 MG SL (16:02)
[2017-06-29] MEDS ORDERED: BREO ELLIPTA 11 EACH INH (16:03)
[2017-06-29] MEDS ORDERED: PROVENTIL HFA6.7 GM INH (16:03)
[2017-06-29] MEDS ORDERED: LISINOPRIL5 MG PO (16:05)
[2017-06-30] VITALS: BP 140/69
[2017-06-30 06:15] LABS: BASO % 0.2 % (0.0-1.0); EOS # 0.1 10*3/uL (0.0-0.4); EOS % 1.5 % (1.0-4.0); HEMATOCRIT 25.7 % (37.0-47.0); HEMOGLOBIN 8.3 g/dl (12.0-16.0); LYMPH # 0.8 10*3/uL (1.3-4.4); LYMPH % 8.2 % (27.0-41.0); MEAN CELL VOLUME 88.3 fl (81.0-99.0); MEAN CORPUSCULAR HGB 28.5 pg (27.0-31.0); MEAN CORPUSCULAR HGB CONC 32.3 g/dl (33.0-37.0); MEAN PLATELET VOLUME 10.7 fl (9.6-12.3); MONO # 0.2 10*3/uL (0.1-1.0); MONO % 1.8 % (3.0-9.0); NEUT # 8.3 10*3/uL (2.3-7.9); NEUT % 87.7 % (47.0-73.0); PLATELET COUNT AUTOMATED 179 10*3/uL (130-400); RED BLOOD COUNT 2.91 10*6/uL (4.10-5.10); RED CELL DISTRI WIDTH 14.9 % (0-14.5); WHITE BLOOD COUNT 9.4 10*3/uL (4.8-10.8)
[2017-06-30 06:54] LABS: CHLORIDE 100 mmol/L (98-107); POTASSIUM 3.8 mmol/L (3.5-5.1); SODIUM 133 mmol/L (136-145)
[2017-06-30 06:58] LABS: BUN 18 mg/dl (7-24); CREATININE 0.94 mg/dL (0.55-1.02)
[2017-06-30 08:00] VITALS: BP 149/65
[2017-06-30 08:11] LABS: BILIRUBIN NEGATIVE (NEGATIVE); BLOOD NEGATIVE (NEGATIVE); CLARITY CLEAR (CLEAR); COLOR YELLOW (YELLOW); GLUCOSE NEGATIVE (NEGATIVE); KETONE NEGATIVE (NEGATIVE); LEUKO ESTERASE NEGATIVE (NEGATIVE); NITRITE NEGATIVE (NEGATIVE); UROBILINOGEN 0.2 E.U./dl (0.2-1.0)
[2017-06-30 08:21] LABS: BACTERIA TRACE
[2017-06-30 12:00] VITALS: BP 114/61
[2017-06-30 16:00] VITALS: BP 96/52
[2017-06-30 20:00] VITALS: BP 90/54
[2017-07-01] VITALS: BP 124/58
[2017-07-01 06:17] LABS: HEMATOCRIT 23.9 % (37.0-47.0); HEMOGLOBIN 7.8 g/dl (12.0-16.0); MEAN CELL VOLUME 88.8 fl (81.0-99.0); MEAN CORPUSCULAR HGB CONC 32.6 g/dl (33.0-37.0); MEAN PLATELET VOLUME 10.2 fl (9.6-12.3); PLATELET COUNT AUTOMATED 155 10*3/uL (130-400); RED BLOOD COUNT 2.69 10*6/uL (4.10-5.10); WHITE BLOOD COUNT 5.9 10*3/uL (4.8-10.8)
[2017-07-01 06:54] LABS: BUN 15 mg/dl (7-24); CHLORIDE 99 mmol/L (98-107); CREATININE 0.99 mg/dL (0.55-1.02); POTASSIUM 3.5 mmol/L (3.5-5.1); SODIUM 133 mmol/L (136-145)
[2017-07-01 06:58] LABS: POLYCHROMASIA SLIGHT; TOTAL CELLS COUNTED 100 #CELLS
[2017-07-01 06:59] LABS: PLATELET SUFFICIENCY NORMAL (NORMAL); TARGET CELLS FEW
[2017-07-01 08:00] VITALS: BP 107/58
[2017-07-01 12:00] VITALS: BP 116/60
[2017-07-01 16:00] VITALS: BP 123/59
[2017-07-01 20:00] VITALS: BP 115/54
[2017-07-02 00:48] VITALS: BP 123/70
[2017-07-02 07:03] LABS: BASO % 0.8 % (0.0-1.0); EOS # 0.1 10*3/uL (0.0-0.4); EOS % 1.6 % (1.0-4.0); HEMATOCRIT 23.9 % (37.0-47.0); HEMOGLOBIN 7.7 g/dl (12.0-16.0); LYMPH # 0.8 10*3/uL (1.3-4.4); LYMPH % 20.1 % (27.0-41.0); MEAN CELL VOLUME 89.5 fl (81.0-99.0); MEAN CORPUSCULAR HGB 28.8 pg (27.0-31.0); MEAN CORPUSCULAR HGB CONC 32.2 g/dl (33.0-37.0); MEAN PLATELET VOLUME 10.7 fl (9.6-12.3); MONO # 0.2 10*3/uL (0.1-1.0); MONO % 4.7 % (3.0-9.0); NEUT # 2.7 10*3/uL (2.3-7.9); PLATELET COUNT AUTOMATED 140 10*3/uL (130-400); RED BLOOD COUNT 2.67 10*6/uL (4.10-5.10); WHITE BLOOD COUNT 3.8 10*3/uL (4.8-10.8)
[2017-07-02 07:14] LABS: BUN 9 mg/dl (7-24); CHLORIDE 101 mmol/L (98-107); CREATININE 0.78 mg/dL (0.55-1.02); POTASSIUM 3.9 mmol/L (3.5-5.1); SODIUM 133 mmol/L (136-145)
[2017-07-02 08:00] VITALS: BP 136/70
[2017-07-02 12:00] VITALS: BP 129/89
[2017-07-02] MEDS ORDERED: LORAZEPAM1 MG PO (12:13)
[2017-07-02] MEDS ORDERED: Percocet 325 MG1 TAB PO (12:13)
[2017-07-02 16:00] VITALS: BP 138/64
[2017-07-02 20:00] VITALS: BP 132/69
[2017-07-03] VITALS (8 sets, daily range): BP systolic 109–154; BP diastolic 51–89
[2017-07-03 09:26] LABS: BASO % 0.5 % (0.0-1.0); EOS % 0.8 % (1.0-4.0); HEMATOCRIT 24.8 % (37.0-47.0); HEMOGLOBIN 7.8 g/dl (12.0-16.0); LYMPH # 0.9 10*3/uL (1.3-4.4); LYMPH % 22.9 % (27.0-41.0); MEAN CELL VOLUME 89.5 fl (81.0-99.0); MEAN CORPUSCULAR HGB 28.2 pg (27.0-31.0); MEAN CORPUSCULAR HGB CONC 31.5 g/dl (33.0-37.0); MEAN PLATELET VOLUME 10.5 fl (9.6-12.3); MONO # 0.4 10*3/uL (0.1-1.0); MONO % 9.6 % (3.0-9.0); NEUT # 2.5 10*3/uL (2.3-7.9); NEUT % 64.9 % (47.0-73.0); PLATELET COUNT AUTOMATED 145 10*3/uL (130-400); RED BLOOD COUNT 2.77 10*6/uL (4.10-5.10); RED CELL DISTRI WIDTH 14.8 % (0-14.5); WHITE BLOOD COUNT 3.8 10*3/uL (4.8-10.8)
[2017-07-03] MEDS ORDERED: LORAZEPAM1 MG PO (19:13)
[2017-07-03] MEDS ORDERED: TYLENOL EXTRA500 M2 PO (19:13)
[2017-07-03] MEDS ORDERED: MORPHINE SULFAT15 M7 PO (19:13)
== END 2017-07-03 20:20 | DRG 180 ==
LOC: ED 14:44 → 4E 17:41
PROVIDERS: Emergency Medicine; Internal Medicine; Internal Medicine Hematology & Oncology
PROC: 0W9B30Z Drainage of Left Pleural Cavity with Drainage Device, Percutaneous Approach (ICD-10-PCS; principal; 2017-07-03)
DX: C34.90 Malignant neoplasm of unspecified part of unspecified bronchus or lung (principal); E43 Unspecified severe protein-calorie malnutrition; J91.0 Malignant pleural effusion; D70.1 Agranulocytosis secondary to cancer chemotherapy; C78.2 Secondary malignant neoplasm of pleura; C79.51 Secondary malignant neoplasm of bone; K72.90 Hepatic failure, unspecified without coma; I50.22 Chronic systolic (congestive) heart failure; J98.11 Atelectasis; Z68.1 Body mass index [BMI] 19.9 or less, adult; D63.0 Anemia in neoplastic disease; I25.10 Atherosclerotic heart disease of native coronary artery without angina pectoris; K52.9 Noninfective gastroenteritis and colitis, unspecified; J44.9 Chronic obstructive pulmonary disease, unspecified; E86.0 Dehydration; R62.7 Adult failure to thrive; I73.9 Peripheral vascular disease, unspecified; Z79.899 Other long term (current) drug therapy; Z85.41 Personal history of malignant neoplasm of cervix uteri; Z90.710 Acquired absence of both cervix and uterus; Z93.3 Colostomy status

== ENCOUNTER → 2017-07-17 | Outpatient (CLI) | payer MEDICARE, MEDICAID ==
[2017-07-17] VITALS (11 sets, daily range): BP systolic 97–146; BP diastolic 52–91
[~2017-07-17] MED LIST changes: +ALDACTONE25 MG PO; +AMIODARONE HCL200 MG PO; +BREO ELLIPTA 11 EACH INH; +CARVEDILOL3.125 MG PO; +FUROSEMIDE40 MG PO; +LISINOPRIL5 MG PO; +LORAZEPAM1 MG PO; +MORPHINE SULFAT15 M7 PO; +NITROGLYCERIN0.4 MG SL; +ONDANSETRON HYDR4 MG PO; +POTASSIUM CHLO20 ME4 PO; +PROVENTIL HFA6.7 GM INH; +Percocet 325 MG1 TAB PO; +TYLENOL EXTRA500 M2 PO; +ZOLPIDEM TART5 MG PO
== END | disposition home or self-care (01) ==
LOC: TRNFUSION 12:49
DX: C78.00 Secondary malignant neoplasm of unspecified lung (principal); M62.81 Muscle weakness (generalized); I11.0 Hypertensive heart disease with heart failure; I50.22 Chronic systolic (congestive) heart failure; R26.2 Difficulty in walking, not elsewhere classified; C79.51 Secondary malignant neoplasm of bone; J44.9 Chronic obstructive pulmonary disease, unspecified; F41.9 Anxiety disorder, unspecified; J91.0 Malignant pleural effusion; I25.10 Atherosclerotic heart disease of native coronary artery without angina pectoris; I25.2 Old myocardial infarction; I73.9 Peripheral vascular disease, unspecified; Z92.21 Personal history of antineoplastic chemotherapy; Z95.2 Presence of prosthetic heart valve

== ENCOUNTER 2017-07-19 22:55 | Emergency (ER) | payer MEDICARE, MEDICAID ==
[~2017-07-19] VITALS: Ht 167.6 cm; Wt 40.4 kg
[2017-07-19 23:37] LABS: BASO % 0.2 % (0.0-1.0); EOS % 0.1 % (1.0-4.0); HEMATOCRIT 35.9 % (37.0-47.0); HEMOGLOBIN 11.7 g/dl (12.0-16.0); LYMPH # 1.3 10*3/uL (1.3-4.4); LYMPH % 12.3 % (27.0-41.0); MEAN CELL VOLUME 89.1 fl (81.0-99.0); MEAN CORPUSCULAR HGB CONC 32.6 g/dl (33.0-37.0); MEAN PLATELET VOLUME 9.6 fl (9.6-12.3); MONO # 0.1 10*3/uL (0.1-1.0); MONO % 1.1 % (3.0-9.0); NEUT # 9.1 10*3/uL (2.3-7.9); NEUT % 85.9 % (47.0-73.0); PLATELET COUNT AUTOMATED 248 10*3/uL (130-400); RED BLOOD COUNT 4.03 10*6/uL (4.10-5.10); RED CELL DISTRI WIDTH 15.9 % (0-14.5); WHITE BLOOD COUNT 10.6 10*3/uL (4.8-10.8)
[2017-07-19 23:51] LABS: BILIRUBIN NEGATIVE (NEGATIVE); BLOOD TRACE-INTACT (NEGATIVE); CLARITY CLEAR (CLEAR); COLOR YELLOW (YELLOW); GLUCOSE NEGATIVE (NEGATIVE); KETONE NEGATIVE (NEGATIVE); LEUKO ESTERASE NEGATIVE (NEGATIVE); NITRITE NEGATIVE (NEGATIVE); PH 5.5 (5.0-9.0); SPECIFIC GRAVITY <= 1.005 (1.005-1.030); UROBILINOGEN 0.2 E.U./dl (0.2-1.0)
[2017-07-19 23:57] LABS: ALBUMIN 2.4 gm/dl (3.1-4.5); ALKALINE PHOSPHATASE 322 U/L (45-117); BUN 31 mg/dl (7-24); CHLORIDE 90 mmol/L (98-107); CREATININE 1.43 mg/dL (0.55-1.02); LIPASE 164 U/L (73-393); POTASSIUM 5.3 mmol/L (3.5-5.1); SGOT/AST 32 IU/L (3-35); SGPT/ALT 14 U/L (12-78); SODIUM 128 mmol/L (136-145)
[2017-07-19 23:59] LABS: TROPONIN I < 0.015 ng/ml (<0.045)
[2017-07-20 02:14] VITALS: BP 96/54
== END 2017-07-20 02:58 | disposition other institution (70) ==
LOC: ED 22:55
PROVIDERS: Emergency Medicine Emergency Medical Services
DX: R53.1 Weakness (principal); J44.9 Chronic obstructive pulmonary disease, unspecified; I25.2 Old myocardial infarction; Z90.710 Acquired absence of both cervix and uterus; Z98.890 Other specified postprocedural states; Z85.118 Personal history of other malignant neoplasm of bronchus and lung; Z79.899 Other long term (current) drug therapy; Z88.5 Allergy status to narcotic agent; Z95.0 Presence of cardiac pacemaker

== ENCOUNTER 2017-07-26 12:51 | Inpatient (IN) | payer MEDICARE, MEDICAID ==
[~2017-07-26] VITALS: Ht 165.1 cm; Wt 38.6 kg
--- NOTE | ~2017-07-26 | PR ---
[place], [place] PROGRESS NOTE [id number] #: [id number] ROOM: 523 DOCTOR: JIMENEZ GATES MD BIRTHDATE: [birth year] DOS: 07/29/2017 SUBJECTIVE: The patient dabbing at her saliva which is still being suctioned out. OBJECTIVE: VITAL SIGNS: Graphic trend shows a pressure 108/59, pulse of 105, respirations 18, temperature 98.4. LUNGS: Diminished breath sounds. HEART: Regular. ABDOMEN: Soft, scaphoid. EXTREMITIES: Without any edema. LABORATORY DATA: Urine culture shows no bacterial growth. BMP: Glucose 124, BUN 17, creatinine 0.68, sodium 145, potassium 3.4, chloride 110, bicarbonate 26, calcium 8.0. Blood and MediPort site grew MRSA. ASSESSMENT AND PLAN: 1. Methicillin-resistant Staphylococcus aureus sepsis, on intravenous vancomycin. Kidney functions fairly stable. 2. Neutropenia with pancytopenia, following chemotherapy. Awaiting labs today to see whether she would need platelet or blood transfusion. 3. Metastatic lung cancer with chronic pain. Increased morphine discussed with the patient who okayed and increased. 4. Protein-calorie malnutrition, on TPPN, which is to be continued. A midline was placed. Overall, prognosis remains poor and guarded. JIMENEZ GATES MD CM:PNTRANS [id number] JIMENEZ GATES MD 07/29/17 1131 interface
--- NOTE | ~2017-07-26 | PR ---
[place], [place] PROGRESS NOTE NAME: [facility]IL [facility] [id number] UNIT #: [id number] ROOM: 523 DOCTOR: RUBY RANGEL MD BIRTHDATE: [birth year] DOS: 07/30/2017 LABORATORY DATA: White count 1.1, hemoglobin 7.6, hematocrit 23.7, platelet count of 40,000. PLAN: The patient was started on growth factors as well as BMX for her oral mucositis. We will keep a close watch at this time. Her white count is improving. We will continue growth factors and neutropenic precautions. In the meantime, we are awaiting records from [place]. RUBY RANGEL MD CM:PNTRANS [id number] RUBY RANGEL MD 07/31/17 0301 interface
--- NOTE | ~2017-07-26 | PR ---
[place], [place] PROGRESS NOTE [id number] UN[facility] #: [id number] ROOM: 523 DOCTOR: JIMENEZ GATES MD BIRTHDATE: [birth year] DOS: 07/28/2017 SUBJECTIVE: The patient has a lot of pain all throughout her body. The current dose of morphine is not quite helpful. She wanted her medicine increased. OBJECTIVE: VITAL SIGNS: Blood pressure is 114/63, pulse of 92, respirations 18, temperature 98. LUNGS: Diminished breath sounds. HEART: Regular. ABDOMEN: Soft, scaphoid. EXTREMITIES: Without any edema. ASSESSMENT AND PLAN: 1. Pancytopenia from chemotherapy. Dr. Sofia is following. May require platelet transfusion. 2. Sepsis from line sepsis. MRSA in the blood, on IV vancomycin. We will discontinue Zosyn. 3. CA of the lung with mets. Overall prognosis remains poor and guarded. She has mets to the bone, which is causing the pain, increase morphine dosage to 4 mg. JIMENEZ GATES MD CM:PNTRANS [phone] JIMENEZ GATES MD 07/28/17 0467 interface
--- NOTE | ~2017-07-26 | PR ---
[place], [place] PROGRESS NOTE NAME: VERONICA KHALIL [facility] #: [id number] UNIT #: [id number] ROOM: 523 DOCTOR: RUBY RANGEL MD BIRTHDATE: [birth year] DOS: 08/01/2017 SUBJECTIVE: The patient has no change in status, though she is feeling a little better. PHYSICAL EXAMINATION: GENERAL: Pleasant woman, in no apparent distress. VITAL SIGNS: Stable. She is afebrile. HEENT: Normocephalic, atraumatic NECK AND THYROID: Supple. No JVD, thyromegaly, or lymphadenopathy. HEART: Normal S1, S2. Regular rate and rhythm. LUNGS: Clear to auscultation and percussion. ABDOMEN: Soft. Nontender, nondistended. Bowel sounds present. EXTREMITIES: Normal ROM. No clubbing. No edema. LABORATORY DATA: White count of 4.4, hemoglobin 7.3, hematocrit 23.2, platelet count of 7000. ASSESSMENT: 1. Pancytopenia secondary to chemotherapy. 2. Thrombocytopenia. 3. Metastatic lung cancer. PLAN: We will be giving her platelets as well as continue growth factors. We will hold the growth factors for now. Discussed with the patient. RUBY RANGEL MD CM:PNTRANS [phone] RUBY RANGEL MD 08/01/172054 interface
--- NOTE | ~2017-07-26 | PR ---
[place], [place] PROGRESS NOTE NAME: VERONICA KHALIL [facility] #: [id number] UNIT #: [id number] ROOM: 523 DOCTOR: RUBY RANGEL MD BIRTHDATE: [birth year] DOS: 07/31/2017 SUBJECTIVE: The patient has no change in her status. REVIEW OF SYSTEMS HEENT: No trouble swallowing. No double vision. No loss of vision. No pain. ENT AND RESPIRATORY: No wheeze. No change in voice. No cough. No shortness of breath. No coughing up blood. No epistaxis. CARDIOLOGIC: No chest pain. No dizziness. No irregular heartbeat. No leg edema. No palpitations. No shortness of breath. HEMATOLOGIC AND LYMPH: No past transfusion. No fatigue. No loss of appetite. No easy bruising. GASTROENEROLOGIC: No change in bowel habits. No vomiting blood. No abdominal cramping. No nausea. No vomiting. No diarrhea. No constipation. No blood in stool. FEMALE REPRODUCTIVE: No dyspareunia. No pelvic pain. MUSCULOSKELETAL: No back pain. No muscle pain or weakness. No tingling/numbness. UROLOGIC: No pain with urination. No difficulty urinating. No frequent urination. NEUROLOGIC: No burning pain in feet. No trouble with coordination. No loss of consciousness. No headache. No tingling/numbness. No memory loss. PHYSICAL EXAMINATION VITAL SIGNS: Blood pressure 98/59, pulse 104, respiration 16, temperature 97.9. HEENT: Normocephalic, atraumatic NECK AND THYROID: Supple. No JVD, thyromegaly, or lymphadenopathy. HEART: Normal S1, S2. Regular rate and rhythm. LUNGS: Showed decreased breath sounds bilaterally. ABDOMEN: Soft. Nontender, nondistended. Bowel sounds present. EXTREMITIES: Normal ROM. No clubbing. No edema. LABORATORY DATA: White count of 1.8, hemoglobin of 7.7, hematocrit 24.3, platelet count 25,000 with ANC of 1000. ASSESSMENT: 1. Pancytopenia secondary to chemotherapy. 2. Stage 4 metastatic lung cancer. 3. Neutropenic fever. 4. Sepsis from methicillin-resistant Staphylococcus aureus. PLAN: Continue growth factors, transfusion p.r.n. basis. The patient is not bleeding or bruising at this time, if the counts drop then further intervention. In the meantime, continue broad-spectrum antibiotics, discussed. [place], [place] PROGRESS NOTE NAME: VERONICA KHALIL UNIT #: [id number] ROOM: 523 DOCTOR: RUBY RANGEL MD BIRTHDATE: [birth year] RUBY RANGEL MD CM:PNTRANS [phone] RUBY RANGEL MD 07/31/17 2244 interface
--- NOTE | ~2017-07-26 | PR ---
[place], [place] PROGRESS NOTE NAME: VERONICA KHALIL UNIT #: [id number] ROOM: 523 DOCTOR: RUBY RANGEL MD BIRTHDATE: [birth year] DOS: 07/27/2017 The patient was seen because of lung cancer and pancytopenia and sepsis. A full consult to follow. DICTATION ENDS HERE RUBY RANGEL MD CM:PNTRANS [phone] RUBY RANGEL MD 07/28/17 0453 interface
--- NOTE | ~2017-07-26 | CON ---
[place], [place] REPORT OF CONSULTATION NAME: [facility]ICA [facility]HALIL [facility] [id number] UNIT #: [id number] ROOM: 523 DOCTOR: NANCY JAIME MD BIRTHDATE: [birth year] DOS: 07/27/2017 GASTROENDOSCOPIC CONSULTATON HISTORY OF PRESENT ILLNESS: A 66-year-old who is extremely cachexic and bedridden essentially, end-stage lung CA with odynophagia and dysphagia. She has been managed conservatively with Xylocaine ____ as well as nystatin swish. The patient cannot eat. The patient is septic, extremely cachexic, entirely wasted, and dehydrated appearing. The patient is extremely leukopenic and I was asked for placement of the NG tube when we noticed that her white blood cell is below 1 and therefore we could not consider NG tube and family does not want to have PEG tube and she is not a candidate as well. We do not have any IV because the port has been removed because of sepsis and we do not have an enteral access and has become a clinical dilemma until the family decides if this is going to become a hospice case. This is particularly in view of the fact that the patient totally is unable to swallow. PAST MEDICAL HISTORY: Lung CA with metastasis to the pleura, end-stage as far as evaluation, adenocarcinoma of the lung, stage IV, also history of COPD, and history of myocardial infarction. PAST SURGICAL HISTORY: Status post port that was removed again. MEDICATIONS: Has been reviewed. ALLERGIES: DILAUDID. PAST SURGICAL HISTORY: Otherwise, hysterectomy and central port placement and pacemaker, MediPort. SOCIAL HISTORY: Nonsmoker, nonalcohol consumer except in social base. FAMILY HISTORY: Hypertension and coronary artery disease. REVIEW OF SYSTEMS: GENERAL: Extremely ill appearing. HEENT: Admitting severe odynophagia and difficulty to swallow at all. RESPIRATORY: Admitting shortness of breath. CARDIOVASCULAR: Denies chest pain. DIGESTIVE SYSTEM: With associated dysphagia or odynophagia. PHYSICAL EXAMINATION: VITAL SIGNS: Stable, extremely frail patient, practically skin and skeleton residues. HEENT: Oral aphthous ulcerations. Lower teeth are preserved. NECK: Supple. LUNGS: Rhonchi anteroposteriorly. HEART: Normal sinus rhythm. ABDOMEN: Dense. Bowel sounds present. EXTREMITIES: Muscle wasting in upper and lower extremities and entire skeleton [place], [place] REPORT OF CONSULTATION NAME: VERONICA KHALIL UNIT #: [id number] ROOM: 523 DOCTOR: NANCY JAIME MD BIRTHDATE: [birth year] is noticed. NEUROLOGIC: However, alert and oriented. IMPRESSION: Metastatic lung disease end-stage IV, odynophagia, dysphagia, leukopenia, and sepsis. Most recent labs, CBC: H and H of 9 and 29 with white blood cell of 0.2 and platelet count of 51, neutrophils of 35. Her blood cultures have been gram-positive cocci in pairs ____. Primary team is already addressing the above. In summary, this patient needs enteral access. However, it is impractical with her situation to provide the service for her because of her leukopenia of extreme degree, thrombocytopenia as well and on the other hand the central port has been removed because of the sepsis, may be a peripheral line if can be established for peripheral TPN till family decides about hospice. Other adjunctive diagnoses as outlined above in paragraph past medical and surgical history. Workup in progress. NANCY JAIME MD CM:CONSTR:REPORT OF CONSULTATION 1641 07/28/17 0303 interface
--- NOTE | ~2017-07-26 | PR ---
[place], [place] PROGRESS NOTE [id number] UNIT #: [id number] ROOM: 523 DOCTOR: JIMENEZ GATES MD BIRTHDATE: [birth year] DOS: 07/31/2017 SUBJECTIVE: The patient is about the same, does not have any new complaints. Her pain seems to be better than yesterday. OBJECTIVE: VITAL SIGNS: Pressure is 98/59, pulse of 104, respirations 16, temperature 97.9. LUNGS: Diminished breath sounds, clear this morning. HEART: Regular. ABDOMEN: Soft, scaphoid. EXTREMITIES: Without any edema. LABORATORY DATA: Potassium is 4.4. Kidney functions are within normal limits. Magnesium is low at 1.1. I do not have a CBC yet. ASSESSMENT AND PLAN: 1. Neutropenic fever with pancytopenia, post-chemotherapy. 1. Sepsis from methicillin-resistant Staphylococcus aureus, most likely from underlying MediPort which was removed. 2. Mild systolic congestive heart failure, was diuresed with Lasix yesterday. Discussed with the patient's daughter, she would like to have a nasogastric tube placed and they would like to accept hospice and go home once the nasogastric placed. We will wait for the labs to come back to see how high they have come up. If the white cell count has come up to 3 or above, will ask Dr. Nunez for an nasogastric tube placement. JIMENEZ GATES MD CM:PNTRANS [id number] JIMENEZ GATES MD 07/31/1715 interface
--- NOTE | ~2017-07-26 | PR ---
[place], [place] PROGRESS NOTE [id number] UNIT #: [id number] ROOM: 523 DOCTOR: JIMENEZ GATES MD BIRTHDATE: [birth year] DOS: 07/30/2017 SUBJECTIVE: The patient is in a lot more pain this morning. She has a few ulcers in her mouth, which makes it difficult for her. PHYSICAL EXAMINATION: VITAL SIGNS: The patient's count is slightly up this morning. C. diff toxins have been negative graft and she was pressure 123/71, pulse of 132, respirations 20, temperature 98.3. LUNGS: Diminished breath sounds, scattered rhonchi. HEART: Regular. ABDOMEN: Soft. EXTREMITIES: Without any edema. LABORATORY DATA: This morning shows a white cell count of 1.1, hemoglobin 7.6, hematocrit 23.7, platelets 40. ASSESSMENT AND PLAN: 1. MRSA sepsis, on IV vancomycin. Repeat blood cultures will be ordered to see whether it is clearing. 2. Pancytopenia post-chemotherapy, on Neupogen, some improvement in the counts. 3. Difficulty swallowing with mouth ulcers, already on Magic swizzle. 4. Chronic pain from metastatic bone disease as well as other problems. The patient is on morphine, the dose will be increased. 5. 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 Chest x-ray will be ordered. The patient is given 80 of Lasix IV and consider discontinuing of fluids, but the patient's family would like to continue it. JIMENEZ GATES MD CM:PNTRANS [id number] JIMENEZ GATES MD 07/30/17 1445 interface
--- NOTE | ~2017-07-26 | PR ---
[place], [place] PROGRESS NOTE NAME: VERONICA KHALIL [facility] #: [id number] UNIT #: [id number] ROOM: 523 DOCTOR: JIMENEZ GATES MD BIRTHDATE: [birth year] DOS: SUBJECTIVE: The patient is awake and alert, has a moist sounding cough and a low grade fever now. OBJECTIVE: VITAL SIGNS: Graphic trend shows pressure 133/66, pulse 108, respirations 24 and temperature 99.9. LUNGS: Diminished breath sounds, scattered rhonchi and wheezes. HEART: Regular. ABDOMEN: Soft. EXTREMITIES: Without any edema. LABORATORY DATA: White cell count is 4.4, hemoglobin 7.3 and platelets ____. ASSESSMENT AND PLAN: 1. Neutropenia with pancytopenia from chemotherapy. There is some improvement in the white cell count with Neupogen. 2. Thrombocytopenia. Transfusion of platelets will be arranged. 3. Nutrition through TPN right now. The family is insisting that they need a PEG tube placed today. We will ask Dr. Nunez to do one after platelet transfusion and if Dr. Nunez does not plan to do one, the patient's family wants her to go to [facility] and she resides. 4. Carcinoma of the lung with mets to the bone and the liver. Overall, prognosis remains poor and guarded. JIMENEZ GATES MD CM:PNTRANS [id number] JIMENEZ GATES MD 08/01/17 1013 interface
--- NOTE | ~2017-07-26 | WRIGHTHP ---
[place], [place] PATIENT HISTORY AND PHYSICAL EXAM NAME: VERONICA KHALIL [facility] #: [id number] UNIT #: [id number] ROOM: 523 DOCTOR: JIMENEZ GATES MD BIRTHDATE: [birth year] DOS: 07/26/2017 HISTORY OF PRESENT ILLNESS: The patient is 66-year-old. The patient was diagnosed with CA lung early April and has been receiving chemotherapy, has been in [facility], was brought to the Emergency Room yesterday because of increased weakness. She also was found to be neutropenic. The patient did also complain of some pain in the MediPort area and with some redness in the MediPort site. The patient after admission has been unable to eat anything or swallow any medications. She denies having any chest pains, palpitations, but she has diffuse aches and pains and was not able to take any of her pain medications by mouth, was prescribed Dilaudid, which made her sick, so was switched to morphine. She denies having any fever or chills, but she appears quite warm and almost hot to touch. Does not have any diarrhea. Does complain of a lot of pain when you touch the MediPort site. PAST MEDICAL HISTORY: Significant for: 1. Adenocarcinoma of the lung, on chemotherapy. This is metastatic with liver and bone. 2. Adult failure to thrive. 3. Neutropenia from chemotherapy. 4. Severe protein calorie malnutrition. 5. Cardiomyopathy, ejection fraction 25%. 6. History of coronary artery disease of the [place] coronaries. 7. History of fem-pop bypass. 8. History of colostomy with reversal. 9. History of cervical CA with hysterectomy. MEDICATIONS: She is currently on Breo Ellipta, Percocet, amiodarone, Coreg, vitamin D, Plavix, cyproheptadine, Marinol, Diflucan, gabapentin, lisinopril, loratadine, mag oxide, morphine, omeprazole, ondansetron, prednisone, simvastatin, spironolactone. SOCIAL HISTORY: Nonsmoker. PHYSICAL EXAMINATION: GENERAL: She is awake and alert, quite weak, very difficult to even speak. She had to write down what she had to say. She is unable to swallow. VITAL SIGNS: Blood pressure is 126/67, pulse of 95, respirations 20, temperature 97.3. LUNGS: Diminished breath sounds. HEART: Regular. ABDOMEN: Soft, scaphoid. EXTREMITIES: Without any edema. BACK: Two small skin tears noticed and the stage I lesions noticed on the left buttock. ASSESSMENT AND PLAN: 1. Severe protein-calorie malnutrition. The patient is unable to eat much, encouraged to eat some soft foods. 2. Line sepsis. MediPort will need to be removed. The MediPort site is quite [place], [place] PATIENT HISTORY AND PHYSICAL EXAM NAME: VERONICA KHALIL UNIT #: [id number] ROOM: 523 DOCTOR: JIMENEZ GATES MD BIRTHDATE: [birth year] tender. Blood culture is growing gram positive. She is on vancomycin and Zosyn. This most likely is a Staphylococcus aureus. 3. Neutropenia, Consult Dr. Sofia. Neutropenic precautions to be continued and on medications. 4. Metastatic lung cancer. Overall prognosis remains poor and guarded and the patient continues to deteriorate. Discussed with the nursing staff to suggest hospice care for this patient. Family not available to discuss. JIMENEZ GATES MD CM:HISPHYS:PATIENT HISTORY AND PHYSICAL EXAMINATION 0 JIMENEZ GATES MD 07/27/1747 interface
--- NOTE | ~2017-07-26 | PR ---
[place], [place] PROGRESS NOTE NAME: VERONICA KHALIL [facility] #: [id number] UNIT #: [id number] ROOM: 523 DOCTOR: RUBY RANGEL MD BIRTHDATE: [birth year] DOS: 07/29/2017 SUBJECTIVE: The patient is doing good. She has got severe oral mucositis and her saliva is dribbling. She is complaining of pain and burning examination. REVIEW OF SYSTEMS HEENT: No trouble swallowing. No double vision. No loss of vision. No pain. ENT AND RESPIRATORY: No wheeze. No change in voice. No cough. No shortness of breath. No coughing up blood. No epistaxis. CARDIOLOGIC: No chest pain. No dizziness. No irregular heartbeat. No leg edema. No palpitations. No shortness of breath. HEMATOLOGIC AND LYMPH: No past transfusion. No fatigue. No loss of appetite. No easy bruising. GASTROENTEROLOGIC: No change in bowel habits. No vomiting blood. No abdominal cramping. No nausea. No vomiting. No diarrhea. No constipation. No blood in stool. FEMALE REPRODUCTIVE: No dyspareunia. No pelvic pain. MUSCULOSKELETAL: No back pain. No muscle pain or weakness. No tingling/numbness. UROLOGIC: No pain with urination. No difficulty urinating. No frequent urination. NEUROLOGIC: No burning pain in feet. No trouble with coordination. No loss of consciousness. No headache. No tingling/numbness. No memory loss. PHYSICAL EXAMINATION VITAL SIGNS: Stable. She is afebrile. HEENT: Shows severe mucositis with burning and difficulty swallowing. NECK AND THYROID: Supple. No JVD, thyromegaly, or lymphadenopathy. HEART: Normal S1, S2. Regular rate and rhythm. LUNGS: Clear to auscultation and percussion. ABDOMEN: Soft. Nontender, nondistended. Bowel sounds present. EXTREMITIES: Normal ROM. No clubbing. No edema. LABORATORY DATA: White count of 0.7, hemoglobin of 8.4, hematocrit 26.6, and platelet count of 11,000. ASSESSMENT: 1. Pancytopenia secondary to chemotherapy. 2. Severe oral mucositis. 3. Metastatic lung cancer. PLAN: She will continue neutropenic precautions. She will be given platelets. If her hemoglobin drops further, then packed RBC. In the meantime, we will give BMX for her oral mucositis. The patient refusing to swallow anything. I have talked to her, she agreed to try BMX. If not, then further intervention. I also discussed with the case RN. Ample time was given to the patient to ask me questions. [place], [place] PROGRESS NOTE NAME: VERONICA KHALIL UNIT #: [id number] ROOM: 523 DOCTOR: RUBY RANGEL MD BIRTHDATE: [birth year] RUBY RANGEL MD CM:PNTRANS [id number] RUBY RANGEL MD 07/30/17 0003 interface
--- NOTE | ~2017-07-26 | PROC NOTE ---
[place], [place] PROCEDURE NOTE NAME: VERONICA KHALIL [facility] #: [id number] UNIT #: [id number] ROOM: 523 DOCTOR: TRAE DING MD BIRTHDATE: [birth year] DOS: 07/27/2017 PREOPERATIVE DIAGNOSIS: Infected right chest MediPort. POSTOPERATIVE DIAGNOSIS: Infected right chest MediPort. PROCEDURE: Removal of right chest MediPort. SURGEON: Trae Ding MD MEDICAL STAFF SERVICES COORDINATOR: NITESH. ANESTHESIA: MAC with local. INDICATIONS: This is a 66-year-old -[place] lady with a history of advanced lung cancer and who had a MediPort placed for chemotherapy a few months ago who is here for the above-mentioned procedure. The procedure and its complications were explained to the patient in detail. Complications that were discussed included but were not limited to, bleeding, infection and damage to lying vital structures. She agreed to proceed. DESCRIPTION OF PROCEDURE: After identifying the patient, the patient was brought to the operating suite and laid in the supine position. After IV sedation was administered by the anesthesia team, a timeout procedure was called and the parts were then painted and draped in the usual sterile fashion. Local anesthesia was infiltrated over the incision line, which was opened with the help of a knife. The subcutaneous tissue was entered and the stitch anchoring the MediPort was cut and the MediPort itself was then removed and sent for histopathological diagnosis. A specimen of fluid around the MediPort was sent for culture and sensitivity. Thereafter, saline was used for irrigation and the subcutaneous tissue was approximated with the help of 3-0 Vicryl in a running fashion. The skin edges were then approximated with the help of 4-0 Vicryl in a subcuticular running fashion. A dressing was placed. The patient tolerated the procedure well. There were no complications. Dr. Trae Ding, the attending surgeon, was present throughout the operating case. Trae Ding MD CM:PROCNOTE:PROCEDURE NOTE 1118 [id number] TRAE DING MD
[2017-07-26 12:51] VITALS: BP 117/69
[~2017-07-26 12:51] MED LIST changes: +DELTASONE20 M1 PO; +FLUCONAZOLE100 MG PO
[2017-07-26 13:30] LABS: HEMATOCRIT 35.5 % (37.0-47.0); HEMOGLOBIN 11.4 g/dl (12.0-16.0); MEAN CELL VOLUME 90.3 fl (81.0-99.0); MEAN CORPUSCULAR HGB CONC 32.1 g/dl (33.0-37.0); MEAN PLATELET VOLUME 9.9 fl (9.6-12.3); PLATELET COUNT AUTOMATED 90 10*3/uL (130-400); RED BLOOD COUNT 3.93 10*6/uL (4.10-5.10); RED CELL DISTRI WIDTH 15.1 % (0-14.5)
[2017-07-26 13:37] LABS: ACT PARTIAL THROMBO TIME 21.8 SECONDS (20.8-31.5)
[2017-07-26 13:43] LABS: ALBUMIN 2.7 gm/dl (3.1-4.5); ALKALINE PHOSPHATASE 238 U/L (45-117); BUN 51 mg/dl (7-24); CHLORIDE 96 mmol/L (98-107); CREATININE 1.66 mg/dL (0.55-1.02); LIPASE 51 U/L (73-393); POTASSIUM 4.6 mmol/L (3.5-5.1); SGOT/AST 29 IU/L (3-35); SGPT/ALT 16 U/L (12-78); SODIUM 134 mmol/L (136-145); TOTAL PROTEIN 8.1 gm/dL (6.4-8.2)
[2017-07-26 13:53] LABS: TROPONIN I < 0.015 ng/ml (<0.045)
[2017-07-26 14:00] VITALS: BP 113/57
[2017-07-26 14:07] LABS: WHITE BLOOD COUNT 0.3 10*3/uL (4.8-10.8)
[2017-07-26 14:37] LABS: TOTAL CELLS COUNTED 100 #CELLS
[2017-07-26 14:39] LABS: PLATELET SUFFICIENCY LOW (NORMAL)
[2017-07-26 16:15] VITALS: BP 101/63
[2017-07-26 16:18] LABS: BILIRUBIN NEGATIVE (NEGATIVE); BLOOD NEGATIVE (NEGATIVE); CLARITY CLEAR (CLEAR); COLOR YELLOW (YELLOW); GLUCOSE NEGATIVE (NEGATIVE); KETONE 1+ (NEGATIVE); LEUKO ESTERASE NEGATIVE (NEGATIVE); NITRITE NEGATIVE (NEGATIVE); UROBILINOGEN 0.2 E.U./dl (0.2-1.0)
[2017-07-26 16:26] LABS: RBC 0-2 rbc/hpf (0-2)
[2017-07-26 17:00] VITALS: BP 126/65
[2017-07-26 17:18] VITALS: BP 126/65
[2017-07-26] MEDS ORDERED: BIOTENE DRY M1000 ML PO (18:17)
[2017-07-26] MEDS ORDERED: 'CYPROHEPTADINE4 MG PO (18:22)
[2017-07-26] MEDS ORDERED: MARINOL2.5 M1 PO (18:23)
[2017-07-26] MEDS ORDERED: VITAMIN D31000 UNI1 PO (18:24)
[2017-07-26] MEDS ORDERED: MAGOX 400400 MG PO (18:24)
[2017-07-26 20:00] VITALS: BP 119/54
[2017-07-27] VITALS (9 sets, daily range): BP systolic 111–134; BP diastolic 56–67
[2017-07-27 06:41] LABS: HEMATOCRIT 29.7 % (37.0-47.0); MEAN CORPUSCULAR HGB 28.8 pg (27.0-31.0); MEAN CORPUSCULAR HGB CONC 31.3 g/dl (33.0-37.0); MEAN PLATELET VOLUME 9.9 fl (9.6-12.3); RED BLOOD COUNT 3.23 10*6/uL (4.10-5.10); RED CELL DISTRI WIDTH 15.1 % (0-14.5)
[2017-07-27 06:43] LABS: HEMOGLOBIN 9.3 g/dl (12.0-16.0); PLATELET COUNT AUTOMATED 51 10*3/uL (130-400)
[2017-07-27 07:05] LABS: DOHLE BODIES FEW; PLATELET SUFFICIENCY LOW (NORMAL); POLYCHROMASIA SLIGHT; TOTAL CELLS COUNTED 20 #CELLS
[2017-07-27 07:07] LABS: WHITE BLOOD COUNT 0.2 10*3/uL (4.8-10.8)
[2017-07-27 09:40] LABS: BILIRUBIN NEGATIVE (NEGATIVE); BLOOD 3+ (NEGATIVE); CLARITY CLOUDY (CLEAR); COLOR YELLOW (YELLOW); GLUCOSE NEGATIVE (NEGATIVE); KETONE 1+ (NEGATIVE); LEUKO ESTERASE NEGATIVE (NEGATIVE); NITRITE NEGATIVE (NEGATIVE); UROBILINOGEN 0.2 E.U./dl (0.2-1.0)
[2017-07-27 11:10] LABS: BACTERIA 1+; RBC 41-50 rbc/hpf (0-2); URIC ACID CRYSTALS 3+
[2017-07-28] VITALS: BP 114/63
[2017-07-28 06:55] LABS: HEMATOCRIT 27.7 % (37.0-47.0); HEMOGLOBIN 8.7 g/dl (12.0-16.0); MEAN CELL VOLUME 92.3 fl (81.0-99.0); MEAN CORPUSCULAR HGB CONC 31.4 g/dl (33.0-37.0); RED CELL DISTRI WIDTH 15.5 % (0-14.5)
[2017-07-28 07:22] LABS: DOHLE BODIES MODERATE; PLATELET SUFFICIENCY LOW (NORMAL); POLYCHROMASIA SLIGHT; TOTAL CELLS COUNTED 50 #CELLS; TOXIC GRANULATION MODERATE
[2017-07-28 07:24] LABS: WHITE BLOOD COUNT 0.5 10*3/uL (4.8-10.8)
[2017-07-28 07:25] LABS: PLATELET COUNT AUTOMATED 23 10*3/uL (130-400)
[2017-07-28 07:56] LABS: CHLORIDE 111 mmol/L (98-107); CREATININE 0.94 mg/dL (0.55-1.02); PHOSPHOROUS 1.4 mg/dL (2.5-4.9)
[2017-07-28 08:00] VITALS: BP 106/61
[2017-07-28 08:01] LABS: POTASSIUM 3.2 mmol/L (3.5-5.1); SODIUM 146 mmol/L (136-145)
[2017-07-28 08:02] LABS: BUN 23 mg/dl (7-24)
[2017-07-28 12:00] VITALS: BP 114/68
[2017-07-28 16:13] VITALS: BP 104/59
[2017-07-28 20:48] VITALS: BP 109/62
[2017-07-29] VITALS: BP 108/59
[2017-07-29 06:55] LABS: BUN 17 mg/dl (7-24); CHLORIDE 110 mmol/L (98-107); CREATININE 0.68 mg/dL (0.55-1.02); POTASSIUM 3.4 mmol/L (3.5-5.1); SODIUM 145 mmol/L (136-145)
[2017-07-29 07:38] LABS: HEMATOCRIT 26.6 % (37.0-47.0); HEMOGLOBIN 8.4 g/dl (12.0-16.0); MEAN CELL VOLUME 92.7 fl (81.0-99.0); MEAN CORPUSCULAR HGB 29.3 pg (27.0-31.0); MEAN CORPUSCULAR HGB CONC 31.6 g/dl (33.0-37.0); RED BLOOD COUNT 2.87 10*6/uL (4.10-5.10); RED CELL DISTRI WIDTH 15.6 % (0-14.5)
[2017-07-29 07:56] LABS: PLATELET SUFFICIENCY LOW (NORMAL); POLYCHROMASIA SLIGHT; TOTAL CELLS COUNTED 50 #CELLS
[2017-07-29 07:58] LABS: PLATELET COUNT AUTOMATED 11 10*3/uL (130-400); WHITE BLOOD COUNT 0.7 10*3/uL (4.8-10.8)
[2017-07-29 08:00] VITALS: BP 103/59
[2017-07-29 12:00] VITALS: BP 104/56
[2017-07-29 16:00] VITALS: BP 116/62
[2017-07-30] VITALS: BP 123/71
[2017-07-30 06:49] LABS: HEMATOCRIT 23.7 % (37.0-47.0); HEMOGLOBIN 7.6 g/dl (12.0-16.0); MEAN CELL VOLUME 90.5 fl (81.0-99.0); MEAN CORPUSCULAR HGB CONC 32.1 g/dl (33.0-37.0); MEAN PLATELET VOLUME 10.9 fl (9.6-12.3); RED BLOOD COUNT 2.62 10*6/uL (4.10-5.10); RED CELL DISTRI WIDTH 15.7 % (0-14.5)
[2017-07-30 07:04] LABS: PLATELET COUNT AUTOMATED 40 10*3/uL (130-400)
[2017-07-30 07:29] LABS: PLATELET SUFFICIENCY LOW (NORMAL); POLYCHROMASIA SLIGHT; TOTAL CELLS COUNTED 50 #CELLS
[2017-07-30 07:31] LABS: WHITE BLOOD COUNT 1.1 10*3/uL (4.8-10.8)
[2017-07-30 08:00] VITALS: BP 107/60
[2017-07-30 09:58] LABS: BUN 17 mg/dl (7-24); CHLORIDE 106 mmol/L (98-107); CREATININE 0.66 mg/dL (0.55-1.02); PHOSPHOROUS 3.6 mg/dL (2.5-4.9); POTASSIUM 3.7 mmol/L (3.5-5.1); SODIUM 144 mmol/L (136-145)
[2017-07-30 12:00] VITALS: BP 92/62
[2017-07-30 16:00] VITALS: BP 89/58
[2017-07-30 20:00] VITALS: BP 115/50
[2017-07-31] VITALS: BP 104/57
[2017-07-31 03:09] VITALS: BP 146/58
[2017-07-31 08:00] VITALS: BP 98/59
[2017-07-31 08:17] LABS: BUN 19 mg/dl (7-24); CHLORIDE 102 mmol/L (98-107); POTASSIUM 4.4 mmol/L (3.5-5.1); SODIUM 141 mmol/L (136-145)
[2017-07-31 08:18] LABS: CREATININE 0.63 mg/dL (0.55-1.02); PHOSPHOROUS 4.4 mg/dL (2.5-4.9)
[2017-07-31 08:48] LABS: HEMATOCRIT 24.3 % (37.0-47.0); HEMOGLOBIN 7.7 g/dl (12.0-16.0); MEAN CELL VOLUME 91.7 fl (81.0-99.0); MEAN CORPUSCULAR HGB 29.1 pg (27.0-31.0); MEAN CORPUSCULAR HGB CONC 31.7 g/dl (33.0-37.0); MEAN PLATELET VOLUME 10.7 fl (9.6-12.3); RED BLOOD COUNT 2.65 10*6/uL (4.10-5.10); RED CELL DISTRI WIDTH 15.7 % (0-14.5)
[2017-07-31 09:17] LABS: ATYPICAL LYMPHS 1 % (0-0); DOHLE BODIES MODERATE; PLATELET SUFFICIENCY LOW (NORMAL); POLYCHROMASIA SLIGHT; TOTAL CELLS COUNTED 100 #CELLS; TOXIC GRANULATION MODERATE; VACUOLATION OF NEUTROPHILS MODERATE
[2017-07-31 09:24] LABS: PLATELET COUNT AUTOMATED 25 10*3/uL (130-400); WHITE BLOOD COUNT 1.8 10*3/uL (4.8-10.8)
[2017-07-31 12:00] VITALS: BP 98/60
[2017-07-31 16:00] VITALS: BP 100/64
[2017-07-31 20:00] VITALS: BP 105/62
[2017-08-01] VITALS: BP 100/59
[2017-08-01 07:07] LABS: HEMATOCRIT 23.2 % (37.0-47.0); HEMOGLOBIN 7.3 g/dl (12.0-16.0); MEAN CELL VOLUME 91.3 fl (81.0-99.0); MEAN CORPUSCULAR HGB 28.7 pg (27.0-31.0); MEAN CORPUSCULAR HGB CONC 31.5 g/dl (33.0-37.0); RED BLOOD COUNT 2.54 10*6/uL (4.10-5.10); RED CELL DISTRI WIDTH 15.5 % (0-14.5); WHITE BLOOD COUNT 4.4 10*3/uL (4.8-10.8)
[2017-08-01 07:37] LABS: SCHISTOCYTES FEW; TOTAL CELLS COUNTED 100 #CELLS
[2017-08-01 07:38] LABS: DOHLE BODIES MODERATE; PLATELET SUFFICIENCY LOW (NORMAL); TARGET CELLS FEW; TOXIC GRANULATION MARKED
[2017-08-01 07:40] LABS: PLATELET COUNT AUTOMATED 7 10*3/uL (130-400)
[2017-08-01 08:00] VITALS: BP 133/66
[2017-08-01 12:00] VITALS: BP 112/65
[2017-08-01 16:00] VITALS: BP 117/63
[2017-08-01 20:00] VITALS: BP 119/60
[2017-08-02] VITALS: BP 116/64
== END 2017-08-02 01:00 | DRG 314 ==
LOC: ED 12:51 → EDHOLD 15:32 → 5E 15:32 → EDHOLD 16:02 → 5E 16:07
PROVIDERS: Emergency Medicine; Internal Medicine; Internal Medicine Hematology & Oncology
PROC: 0JPT0XZ Removal of Tunneled Vascular Access Device from Trunk Subcutaneous Tissue and Fascia, Open Approach (ICD-10-PCS; principal; 2017-07-26)
PROC: 30233R1 Transfusion of Nonautologous Platelets into Peripheral Vein, Percutaneous Approach (ICD-10-PCS; principal; 2017-07-26)
DX: T82.7XXA Infection and inflammatory reaction due to other cardiac and vascular devices, implants and grafts, initial encounter (principal); D61.810 Antineoplastic chemotherapy induced pancytopenia; A41.01 Sepsis due to Methicillin susceptible Staphylococcus aureus; E43 Unspecified severe protein-calorie malnutrition; C78.00 Secondary malignant neoplasm of unspecified lung; I42.9 Cardiomyopathy, unspecified; I50.20 Unspecified systolic (congestive) heart failure; C34.90 Malignant neoplasm of unspecified part of unspecified bronchus or lung; E86.0 Dehydration; K12.30 Oral mucositis (ulcerative), unspecified; R62.7 Adult failure to thrive; F32.9 Major depressive disorder, single episode, unspecified; T45.1X5A Adverse effect of antineoplastic and immunosuppressive drugs, initial encounter; Y92.89 Other specified places as the place of occurrence of the external cause; G89.29 Other chronic pain; Y83.8 Other surgical procedures as the cause of abnormal reaction of the patient, or of later complication, without mention of misadventure at the time of the procedure; J44.9 Chronic obstructive pulmonary disease, unspecified; I25.2 Old myocardial infarction; Z79.02 Long term (current) use of antithrombotics/antiplatelets; Z79.51 Long term (current) use of inhaled steroids; Z68.38 Body mass index [BMI] 38.0-38.9, adult; Z79.899 Other long term (current) drug therapy; Z90.710 Acquired absence of both cervix and uterus; Z95.0 Presence of cardiac pacemaker; Z85.41 Personal history of malignant neoplasm of cervix uteri; Z93.3 Colostomy status; Z72.89 Other problems related to lifestyle; Z88.9 Allergy status to unspecified drugs, medicaments and biological substances; Z82.49 Family history of ischemic heart disease and other diseases of the circulatory system